=== PATIENT | female | born 1950 | race African-American/Black ===

== ENCOUNTER 2017-05-18 14:12 | Emergency (ER) | payer MEDICARE, MEDICAID ==
[~2017-05-18] VITALS: Ht 167.6 cm; Wt 91.0 kg
[~2017-05-18 14:12] MED LIST: AMLODAPINE; ASA; INSULIN; LISINOPRIL; METOPROLOL; ZETIA
[2017-05-18 14:18] VITALS: BP 104/42
[2017-05-18] MEDS ORDERED: ACETAMINOPHEN 325MG TABLET PO ONE (16:30)
== END 2017-05-18 18:18 | disposition home or self-care (01) ==
LOC: ER 14:38
DX: L03.031 Cellulitis of right toe (principal); I10 Essential (primary) hypertension; E11.9 Type 2 diabetes mellitus without complications; Z79.4 Long term (current) use of insulin
CPT/HCPCS: 10060; 99283

== ENCOUNTER 2018-01-13 13:27 | Emergency (ER) | payer MEDICARE, MEDICAID ==
[~2018-01-13] VITALS: Ht 165.1 cm; Wt 100.0 kg
[2018-01-13] MEDS ORDERED: ONDANSETRON HCL 4MG/2ML INJ IV STA (14:58)
[2018-01-13] MEDS ORDERED: SODIUM CHLORIDE 0.9% 1,000 ML IV ONE ×2 (14:58→17:45)
[2018-01-13] MEDS ORDERED: MORPHINE SULFATE 4 MG/ML CPJ (NOT FOR IM USE) IV STA (14:58)
[2018-01-13 15:35] LABS: BASOPHILS % 0.8 % (0.0-2.0); EOSINOPHILS % 4.5 % (0.0-5.0); HEMATOCRIT. 35.2 % (36.0-48.0); HEMOGLOBIN. 11.9 g/dL (12.0-16.0); LYMPHOCYTES % 27.2 % (20.0-50.0); MEAN CORPUSCULAR HEMOGLOBIN 29.1 pg (28.0-32.0); MEAN CORPUSCULAR VOLUME 85.9 fL (81.0-99.0); MEAN PLATELET VOLUME 6.5 fl (7.4-10.4); MONOCYTES % 5.7 % (2.0-8.0); NEUTROPHILS % 61.8 % (40.0-76.0); PLATELET 310 x1000/uL (130-400); RED CELL DISTRIBUTION WIDTH 14.2 % (11.6-14.6)
[2018-01-13 15:40] LABS: CHLORIDE 99 mEq/L (98-107)
[2018-01-13 15:56] LABS: CLARITY URINE CLOUDY (CLEAR); COLOR URINE YELLOW (YELLOW); KETONES URINE NEGATIVE (NEGATIVE); LEUKOCYTE ESTERASE URINE NEGATIVE (NEGATIVE); NITRITE URINE NEGATIVE (NEGATIVE); OCCULT BLOOD URINE NEGATIVE (NEGATIVE); PROTEIN URINE 2+ (NEGATIVE); SPECIFIC GRAVITY URINE 1.014 (1.005-1.030); UROBILINOGEN URINE 0.2 E.U./dL (0.2-1.0)
[2018-01-13] MEDS ORDERED: MORPHINE SULFATE 4 MG/ML CPJ (NOT FOR IM USE) IV ONE (17:45)
[2018-01-13] MEDS ORDERED: ONDANSETRON HCL 4MG/2ML INJ IV ONE (17:45)
[2018-01-13] MEDS ORDERED: CEFTRIAXONE SODIUM 1 G/VIAL IV ONE (17:45)
[2018-01-13 20:11] VITALS: BP 157/58
== END 2018-01-13 20:35 | disposition home or self-care (01) ==
LOC: ER 15:16
DX: N12 Tubulo-interstitial nephritis, not specified as acute or chronic (principal); E11.65 Type 2 diabetes mellitus with hyperglycemia; I10 Essential (primary) hypertension; Z79.4 Long term (current) use of insulin; Z87.442 Personal history of urinary calculi
CPT/HCPCS: 36415; 74176; 80053; 81003; 82962; 83690; 85025; 87086; 96374; 96375; 96376; 99285; J0696; J2270; J2405; J7030

== ENCOUNTER 2021-06-06 02:57 | Inpatient (IN) | payer MEDICARE, MEDICAID ==
[~2021-06-06] VITALS: Ht 167.6 cm; Wt 91.3 kg
[2021-06-06] MEDS ORDERED: SODIUM CHLORIDE 0.9% 1,000 ML IV ONE (03:15)
[2021-06-06 03:44] LABS: CHLORIDE 105 mEq/L (98-107)
[2021-06-06 03:51] LABS: HEMATOCRIT. 26.4 % (36.0-48.0); HEMOGLOBIN. 8.6 g/dL (12.0-16.0); MEAN CORPUSCULAR HEMOGLOBIN 27.8 pg (28.0-32.0); MEAN CORPUSCULAR VOLUME 85.2 fL (81.0-99.0); MEAN PLATELET VOLUME 6.9 fl (7.4-10.4); PLATELET 334 x1000/uL (130-400); RED BLOOD CELL COUNT 3.11 mill/uL (4.2-5.4); RED CELL DISTRIBUTION WIDTH 17.3 % (11.6-14.6)
[2021-06-06 04:25] LABS: PLATELET ESTIMATE NORMAL
[2021-06-06] MEDS ORDERED: PIPERACILLIN/TAZ 3.375G PREMIX 50 ML IV NR (04:45)
[2021-06-06] MEDS ORDERED: VANCOMYCIN 1G PREMIX 200 ML IV ONE (04:45)
[2021-06-06] MEDS ORDERED: VANCOMYCIN 1GM PMX (XELLIA) 200 ML IV NR (04:45)
[2021-06-06] MEDS ORDERED: DOCUSATE SODIUM 100MG CAPSULE PO PRN ×3 (06:15→13:00)
[2021-06-06] MEDS ORDERED: IPRATROPIUM/ALBUTEROL 0.5-3(2.5)MG/3ML NEB HHN PRN ×4 (06:15→13:00)
[2021-06-06] MEDS ORDERED: CLONIDINE 0.1MG TABLET PO PRN ×3 (06:15→13:00)
[2021-06-06] MEDS ORDERED: MAGNESIUM/ALUMINUM HYDROXIDE/SIMETHICONE 30ML UDC PO PRN ×4 (06:15→13:00)
[2021-06-06] MEDS ORDERED: ACETAMINOPHEN 325MG TABLET PO PRN ×4 (06:15→13:00)
[2021-06-06] MEDS ORDERED: NA PHOS,M-B/NA PHOS,DI-BA ENEMA 118ML PR PRN ×2 (06:15→13:00)
[2021-06-06] MEDS ORDERED: ONDANSETRON HCL 4MG/2ML INJ IV PRN ×4 (06:15→13:00)
[2021-06-06 07:27] LABS: VITAMIN B12 SERUM 830 pg/mL (211-911)
[2021-06-06] MEDS ORDERED: ENOXAPARIN 40MG/0.4ML SYR SUBCUT SCH (09:00)
[2021-06-06] MEDS ORDERED: METOPROLOL SUCCINATE 50MG ER TABLET PO SCH ×2 (09:00→14:00)
[2021-06-06] MEDS ORDERED: ASPIRIN 81MG TABLET PO SCH (09:00)
[2021-06-06 10:00] VITALS: BP 170/73
[2021-06-06] MEDS ORDERED: HYDROCODONE/ACETAMINOPHEN 5/325MG TABLET PO PRN (11:30)
[2021-06-06] MEDS ORDERED: DEXTROSE 50% WATER 50ML SYRINGE IV PRN ×4 (11:30→13:00)
[2021-06-06] MEDS ORDERED: LEVOFLOXACIN 500MG PREMIX 100 ML IV SCH (11:30)
[2021-06-06 12:00] VITALS: BP 188/81
[2021-06-06] MEDS ORDERED: OMEPRAZOLE 20MG CAPSULE EXTENDED RELEASE PO SCH (12:00)
[2021-06-06] MEDS ORDERED: ENOXAPARIN 30MG/0.3ML SYR SUBCUT SCH ×2 (12:00→13:00)
[2021-06-06] MEDS ORDERED: IPRATROPIUM/ALBUTEROL 0.5-3(2.5)MG/3ML NEB HHN SCH (12:00)
[2021-06-06] MEDS ORDERED: BLOOD SUGAR DIAGNOSTIC STRIP TEST SCH (12:10)
[2021-06-06 12:13] LABS: TOTAL IRON BINDING CAPACITY 215 ug/dL (250-450)
[2021-06-06] MEDS ORDERED: HYDR-4009 MT (12:22)
[2021-06-06] MEDS ORDERED: HYDR100T26 MT (12:22)
[2021-06-06] MEDS ORDERED: LEVVL SQ (12:22)
[2021-06-06] MEDS ORDERED: AMLO5TAB88 MT (12:22)
[2021-06-06] MEDS ORDERED: ASPI-1497 MT (12:22)
[2021-06-06] MEDS ORDERED: INSLIS SUBCUT (12:22)
[2021-06-06] MEDS ORDERED: SITA25TA3 MT (12:22)
[2021-06-06] MEDS: INSULIN LISPRO 100 UNITS/ML SUBCUT SCH ×3 (13:01→20:13)
[2021-06-06] MEDS: CLONIDINE 0.1MG TABLET PO PRN (13:04)
[2021-06-06] MEDS: ASPIRIN 81MG TABLET PO SCH (13:04)
[2021-06-06] MEDS: HYDROCODONE/ACETAMINOPHEN 5/325MG TABLET PO PRN ×2 (13:05→23:47)
[2021-06-06 13:28] LABS: HEMATOCRIT. 24.7 % (36.0-48.0); HEMOGLOBIN. 8.2 g/dL (12.0-16.0); MEAN CORPUSCULAR HEMOGLOBIN 27.9 pg (28.0-32.0); MEAN CORPUSCULAR VOLUME 84.6 fL (81.0-99.0); MEAN PLATELET VOLUME 6.8 fl (7.4-10.4); PLATELET 325 x1000/uL (130-400); RED BLOOD CELL COUNT 2.92 mill/uL (4.2-5.4); RED CELL DISTRIBUTION WIDTH 17.5 % (11.6-14.6)
[2021-06-06] MEDS ORDERED: PIPERACILLIN/TAZ 3.375G PREMIX 50 ML IV SCH (14:00)
[2021-06-06] MEDS ORDERED: PIPERACILLIN/TAZOBACTAM 3.375 G in DEXTROSE 5% WATER 50 ML IV SCH (14:00)
[2021-06-06] MEDS: IPRATROPIUM/ALBUTEROL 0.5-3(2.5)MG/3ML NEB HHN SCH ×2 (14:38→20:28)
[2021-06-06 15:54] LABS: PLATELET ESTIMATE NORMAL
[2021-06-06 16:00] VITALS: BP 158/82
[2021-06-06] MEDS ORDERED: LEVOFLOXACIN 500MG PREMIX 100 ML IV NR (17:00)
[2021-06-06] MEDS: LOSARTAN POTASSIUM 25 MG TABLET PO SCH ×2 (17:57→20:11)
[2021-06-06] MEDS: BLOOD SUGAR DIAGNOSTIC STRIP TEST SCH ×2 (17:59→20:10)
[2021-06-06] MEDS ORDERED: LEVOFLOXACIN 500MG TABLET PO NR (18:00)
[2021-06-06 18:53] LABS: CLARITY URINE CLEAR (CLEAR); COLOR URINE YELLOW (YELLOW); KETONES URINE NEGATIVE (NEGATIVE); LEUKOCYTE ESTERASE URINE NEGATIVE (NEGATIVE); NITRITE URINE NEGATIVE (NEGATIVE); OCCULT BLOOD URINE NEGATIVE (NEGATIVE); PROTEIN URINE 3+ (NEGATIVE); SPECIFIC GRAVITY URINE 1.015 (1.005-1.030); UROBILINOGEN URINE 0.2 E.U./dL (0.2-1.0)
[2021-06-06 20:00] VITALS: BP 181/73
[2021-06-06] MEDS: CARVEDILOL 12.5MG TABLET PO SCH (20:11)
[2021-06-06] MEDS: ATORVASTATIN CALCIUM 40MG TABLET PO SCH (20:11)
[2021-06-06 20:50] VITALS: BP 187/79
[2021-06-06 20:55] LABS: BG BASE EXCESS -3.4 mmol/L (-2.0-2.0); BG CARBOXYHEMOGLOBIN 1.2 % (0.5-1.5); BG DEOXYHEMOGLOBIN 14.5 % (0.0-5.0); BG HCO3 ACT 22.5 mmol/L (22.0-26.0); BG METHEMOGLOBIN 0.3 % (0.0-1.5); BG OXYGEN SATURATION 85.3 % (92.0-98.5); BG PCO2 43.6 mmHg (35.0-45.0); BG PO2 54.6 mmHg (75.0-100.0)
[2021-06-06] MEDS ORDERED: ATORVASTATIN CALCIUM 40MG TABLET PO SCH (21:00)
[2021-06-06] MEDS ORDERED: NALOXONE HCL 0.4MG/ML VIAL IV PRN (21:45)
[2021-06-06 22:00] VITALS: BP 131/55
[2021-06-07] VITALS (20 sets, daily range): BP systolic 105–159; BP diastolic 43–74
[2021-06-07] MEDS: VANCOMYCIN 1.25GM PMX (XELLIA) 250 ML IV SCH (00:01)
[2021-06-07] MEDS ORDERED: FUROSEMIDE 40MG TABLET PO NR (01:15)
[2021-06-07] MEDS: IPRATROPIUM/ALBUTEROL 0.5-3(2.5)MG/3ML NEB HHN SCH ×3 (02:06→14:14)
[2021-06-07] MEDS: HYDROCODONE/ACETAMINOPHEN 5/325MG TABLET PO PRN ×4 (04:13→23:32)
[2021-06-07] MEDS: OMEPRAZOLE 20MG CAPSULE EXTENDED RELEASE PO SCH (06:34)
[2021-06-07] MEDS: BLOOD SUGAR DIAGNOSTIC STRIP TEST SCH ×4 (06:39→21:50)
[2021-06-07 06:47] LABS: BASOPHILS % 0.7 % (0.0-2.0); EOSINOPHILS % 0.7 % (0.0-5.0); LYMPHOCYTES % 10.3 % (20.0-50.0); MEAN CORPUSCULAR HEMOGLOBIN 28.2 pg (28.0-32.0); MEAN CORPUSCULAR VOLUME 85.2 fL (81.0-99.0); MEAN PLATELET VOLUME 6.8 fl (7.4-10.4); MONOCYTES % 5.4 % (2.0-8.0); NEUTROPHILS % 82.9 % (40.0-76.0); PLATELET 271 x1000/uL (130-400); RED BLOOD CELL COUNT 2.44 mill/uL (4.2-5.4)
[2021-06-07 06:58] LABS: HEMOGLOBIN. 6.9 g/dL (12.0-16.0)
[2021-06-07 06:59] LABS: HEMATOCRIT. 20.8 % (36.0-48.0)
[2021-06-07 07:45] LABS: T4 FREE 1.03 ng/dL (0.76-1.46)
[2021-06-07] MEDS: LOSARTAN POTASSIUM 25 MG TABLET PO SCH (08:42)
[2021-06-07] MEDS: DOCUSATE SODIUM 100MG CAPSULE PO PRN ×2 (08:42→17:41)
[2021-06-07] MEDS: CARVEDILOL 12.5MG TABLET PO SCH ×2 (08:42→21:48)
[2021-06-07] MEDS: ASPIRIN 81MG TABLET PO SCH (08:42)
[2021-06-07] MEDS: INSULIN LISPRO 100 UNITS/ML SUBCUT SCH ×4 (08:43→21:49)
[2021-06-07] MEDS: FUROSEMIDE 40MG/4ML VIAL IVP SCH (10:50)
[2021-06-07] MEDS ORDERED: SODIUM POLYSTYRENE SULFONATE 15 G/60 ML BOT PO SCH (11:00)
[2021-06-07 12:35] LABS: FOLIC ACID (FOLATE) SERUM 8.4 ng/mL (>5.38)
[2021-06-07] MEDS ORDERED: LEVOFLOXACIN 250MG PREMIX 50 ML IV SCH (17:00)
[2021-06-07] MEDS: LEVOFLOXACIN 250MG TABLET PO SCH (17:41)
[2021-06-07 21:21] LABS: HEMOGLOBIN 7.8 g/dL (12.0-16.0)
[2021-06-07] MEDS: ATORVASTATIN CALCIUM 40MG TABLET PO SCH (21:45)
[2021-06-07] MEDS ORDERED: INSULIN GLARGINE UD 100 UNITS/ML SYR SUBCUT SCH (22:00)
[2021-06-08] VITALS (17 sets, daily range): BP systolic 126–169; BP diastolic 54–85
[2021-06-08] MEDS: IPRATROPIUM/ALBUTEROL 0.5-3(2.5)MG/3ML NEB HHN SCH ×4 (01:58→21:26)
[2021-06-08] MEDS: HYDROCODONE/ACETAMINOPHEN 5/325MG TABLET PO PRN ×3 (04:43→17:56)
[2021-06-08] MEDS: OMEPRAZOLE 20MG CAPSULE EXTENDED RELEASE PO SCH (06:32)
[2021-06-08] MEDS: BLOOD SUGAR DIAGNOSTIC STRIP TEST SCH ×4 (06:32→20:40)
[2021-06-08] MEDS: INSULIN LISPRO 100 UNITS/ML SUBCUT SCH ×4 (07:20→21:18)
[2021-06-08 07:45] LABS: EOSINOPHILS % 2.8 % (0.0-5.0); HEMOGLOBIN. 7.3 g/dL (12.0-16.0); LYMPHOCYTES % 19.3 % (20.0-50.0); MEAN CORPUSCULAR HEMOGLOBIN 27.8 pg (28.0-32.0); MEAN CORPUSCULAR VOLUME 83.7 fL (81.0-99.0); MONOCYTES % 6.2 % (2.0-8.0); NEUTROPHILS % 70.7 % (40.0-76.0); RED BLOOD CELL COUNT 2.63 mill/uL (4.2-5.4); RED CELL DISTRIBUTION WIDTH 17.4 % (11.6-14.6)
[2021-06-08 08:10] LABS: CHLORIDE 105 mEq/L (98-107)
[2021-06-08 08:20] LABS: PHOSPHORUS 4.7 mg/dL (2.5-4.9)
[2021-06-08] MEDS: ASPIRIN 81MG TABLET PO SCH (08:23)
[2021-06-08] MEDS: CARVEDILOL 12.5MG TABLET PO SCH ×2 (08:23→21:31)
[2021-06-08] MEDS: FUROSEMIDE 40MG/4ML VIAL IVP SCH ×2 (08:23→21:20)
[2021-06-08 08:33] LABS: PLATELET 232 x1000/uL (130-400)
[2021-06-08] MEDS: PANTOPRAZOLE SODIUM 40 MG/VIAL IV SCH ×2 (10:00→17:55)
[2021-06-08 10:35] LABS: BG BASE EXCESS 0.3 mmol/L (-2.0-2.0); BG CARBOXYHEMOGLOBIN 0.2 % (0.5-1.5); BG DEOXYHEMOGLOBIN 7.4 % (0.0-5.0); BG FRACTION INSPIRED OXYGEN 38; BG HCO3 ACT 24.4 mmol/L (22.0-26.0); BG METHEMOGLOBIN 0.1 % (0.0-1.5); BG OXYGEN SATURATION 92.6 % (92.0-98.5); BG OXYHEMOGLOBIN 92.3 % (94.0-97.0); BG PCO2 37.4 mmHg (35.0-45.0); BG PH 7.433 (7.350-7.450); BG PO2 65.6 mmHg (75.0-100.0); BG SAMPLE SITE LEFT RADIAL; BG TOTAL HEMOGLOBIN 8.4 g/dL (12.0-18.0); BG VENT MODE NASAL CANNULA
[2021-06-08] MEDS: VANCOMYCIN 1.25GM PMX (XELLIA) 250 ML IV SCH (13:07)
[2021-06-08] MEDS: CLONIDINE 0.1MG TABLET PO PRN (13:07)
[2021-06-08 16:33] LABS: HEMATOCRIT 25.1 % (36.0-48.0); HEMOGLOBIN 8.3 g/dL (12.0-16.0)
[2021-06-08] MEDS: LEVOFLOXACIN 250MG TABLET PO SCH (17:55)
[2021-06-08] MEDS ORDERED: SENNOSIDES/DOCUSATE SOD 8.6/50MG TABLET PO PRN (18:00)
[2021-06-08] MEDS: DOCUSATE SODIUM 100MG CAPSULE PO PRN (18:05)
[2021-06-08] MEDS ORDERED: POLYETHYLENE GLYCOL 3350 (17GM) 1 DOSE PACK PO NR (18:30)
[2021-06-08] MEDS ORDERED: LACTULOSE 20G/30ML UDC PO NR (18:30)
[2021-06-08] MEDS: HYDROCODONE/ACETAMINOPHEN 10/325MG TABLET PO PRN (19:13)
[2021-06-08] MEDS: ATORVASTATIN CALCIUM 40MG TABLET PO SCH (21:31)
[2021-06-08] MEDS: INSULIN GLARGINE UD 100 UNITS/ML SYR SUBCUT SCH (22:10)
[2021-06-09] VITALS (13 sets, daily range): BP systolic 122–177; BP diastolic 50–81
[2021-06-09] MEDS: HYDROCODONE/ACETAMINOPHEN 10/325MG TABLET PO PRN ×3 (00:28→16:25)
[2021-06-09] MEDS: IPRATROPIUM/ALBUTEROL 0.5-3(2.5)MG/3ML NEB HHN SCH ×4 (01:40→21:10)
[2021-06-09] MEDS ORDERED: LIDOCAINE HCL/PF 1% 2ML VIAL ONE (05:00)
[2021-06-09] MEDS: BLOOD SUGAR DIAGNOSTIC STRIP TEST SCH ×4 (06:40→20:51)
[2021-06-09] MEDS: OMEPRAZOLE 20MG CAPSULE EXTENDED RELEASE PO SCH (06:58)
[2021-06-09] MEDS: INSULIN LISPRO 100 UNITS/ML SUBCUT SCH ×4 (07:20→21:14)
[2021-06-09] MEDS: DOCUSATE SODIUM 100MG CAPSULE PO PRN (07:54)
[2021-06-09] MEDS: FUROSEMIDE 40MG/4ML VIAL IVP SCH ×2 (07:54→21:11)
[2021-06-09] MEDS: PANTOPRAZOLE SODIUM 40 MG/VIAL IV SCH ×2 (07:54→16:25)
[2021-06-09] MEDS: ASPIRIN 81MG TABLET PO SCH (07:54)
[2021-06-09] MEDS: DOCUSATE SODIUM SUGAR FREE 100MG/10ML UDC NG SCH (07:54)
[2021-06-09] MEDS: CARVEDILOL 12.5MG TABLET PO SCH ×2 (07:55→21:12)
[2021-06-09 08:31] LABS: EOSINOPHILS % 3.3 % (0.0-5.0); HEMATOCRIT. 25.7 % (36.0-48.0); HEMOGLOBIN. 8.9 g/dL (12.0-16.0); LYMPHOCYTES % 20.2 % (20.0-50.0); MEAN CORPUSCULAR HEMOGLOBIN 28.8 pg (28.0-32.0); MEAN CORPUSCULAR VOLUME 82.5 fL (81.0-99.0); MONOCYTES % 6.1 % (2.0-8.0); NEUTROPHILS % 69.4 % (40.0-76.0); PLATELET 269 x1000/uL (130-400); RED BLOOD CELL COUNT 3.11 mill/uL (4.2-5.4); RED CELL DISTRIBUTION WIDTH 17.1 % (11.6-14.6)
[2021-06-09 09:06] LABS: IMMUNOGLOBULIN A 338 mg/dL (87-352); IMMUNOGLOBULIN G 966 mg/dL (586-1602); IMMUNOGLOBULIN M 89 mg/dL (26-217)
[2021-06-09 09:47] LABS: PHOSPHORUS 4.6 mg/dL (2.5-4.9)
[2021-06-09] MEDS ORDERED: BISACODYL 10MG SUPP PR NR (10:00)
[2021-06-09] MEDS ORDERED: POTASSIUM CHLORIDE 20MEQ/PACKET PO NR (12:00)
[2021-06-09] MEDS ORDERED: SORBITOL 70% SOLN 30ML PO NR (12:00)
[2021-06-09] MEDS: LIDOCAINE 5% PATCH TOP SCH (13:02)
[2021-06-09] MEDS: LEVOFLOXACIN 250MG TABLET PO SCH (18:16)
[2021-06-09] MEDS: ATORVASTATIN CALCIUM 40MG TABLET PO SCH (21:11)
[2021-06-09] MEDS: INSULIN GLARGINE UD 100 UNITS/ML SYR SUBCUT SCH (21:13)
[2021-06-09] MEDS: HYDRALAZINE HCL 25MG TABLET PO SCH (22:30)
[2021-06-10] VITALS (20 sets, daily range): BP systolic 97–176; BP diastolic 50–76
[2021-06-10] MEDS: HYDROCODONE/ACETAMINOPHEN 10/325MG TABLET PO PRN ×3 (00:20→17:37)
[2021-06-10] MEDS: IPRATROPIUM/ALBUTEROL 0.5-3(2.5)MG/3ML NEB HHN SCH ×4 (01:45→20:16)
[2021-06-10] MEDS: HYDRALAZINE HCL 25MG TABLET PO SCH (05:02)
[2021-06-10] MEDS: BLOOD SUGAR DIAGNOSTIC STRIP TEST SCH ×4 (06:28→20:16)
[2021-06-10] MEDS: CLONIDINE 0.1MG TABLET PO PRN (06:33)
[2021-06-10 06:55] LABS: BASOPHILS % 0.9 % (0.0-2.0); EOSINOPHILS % 3.1 % (0.0-5.0); HEMATOCRIT. 27.3 % (36.0-48.0); HEMOGLOBIN. 9.5 g/dL (12.0-16.0); LYMPHOCYTES % 17.5 % (20.0-50.0); MEAN CORPUSCULAR HEMOGLOBIN 28.5 pg (28.0-32.0); MEAN CORPUSCULAR VOLUME 81.9 fL (81.0-99.0); MEAN PLATELET VOLUME 6.9 fl (7.4-10.4); MONOCYTES % 7.4 % (2.0-8.0); NEUTROPHILS % 71.1 % (40.0-76.0); PLATELET 284 x1000/uL (130-400); RED BLOOD CELL COUNT 3.33 mill/uL (4.2-5.4); RED CELL DISTRIBUTION WIDTH 16.8 % (11.6-14.6)
[2021-06-10 07:12] LABS: PHOSPHORUS 4.3 mg/dL (2.5-4.9)
[2021-06-10] MEDS: INSULIN LISPRO 100 UNITS/ML SUBCUT SCH ×4 (07:20→20:26)
[2021-06-10] MEDS: FUROSEMIDE 40MG/4ML VIAL IVP SCH ×2 (08:10→20:13)
[2021-06-10] MEDS: PANTOPRAZOLE SODIUM 40 MG/VIAL IV SCH ×2 (08:10→17:35)
[2021-06-10] MEDS: ASPIRIN 81MG TABLET PO SCH (08:10)
[2021-06-10] MEDS: DOCUSATE SODIUM 100MG CAPSULE PO PRN (08:10)
[2021-06-10] MEDS: CARVEDILOL 12.5MG TABLET PO SCH ×2 (08:11→20:14)
[2021-06-10] MEDS: DOCUSATE SODIUM SUGAR FREE 100MG/10ML UDC NG SCH (08:11)
[2021-06-10] MEDS: LIDOCAINE 5% PATCH TOP SCH (08:14)
[2021-06-10] MEDS ORDERED: FURO-152 MT (11:10)
[2021-06-10] MEDS ORDERED: LIP40 PO (11:10)
[2021-06-10] MEDS ORDERED: SENN1TAB35 PO (11:10)
[2021-06-10] MEDS: HYDRALAZINE HCL 50MG TABLET PO SCH ×2 (14:20→22:00)
[2021-06-10] MEDS: LEVOFLOXACIN 250MG TABLET PO SCH (17:36)
[2021-06-10] MEDS: ATORVASTATIN CALCIUM 40MG TABLET PO SCH (20:13)
[2021-06-10] MEDS: INSULIN GLARGINE UD 100 UNITS/ML SYR SUBCUT SCH (22:06)
[2021-06-11] VITALS (13 sets, daily range): BP systolic 123–168; BP diastolic 52–72
[2021-06-11] MEDS: HYDROCODONE/ACETAMINOPHEN 10/325MG TABLET PO PRN ×3 (01:10→17:43)
[2021-06-11] MEDS: IPRATROPIUM/ALBUTEROL 0.5-3(2.5)MG/3ML NEB HHN SCH ×4 (01:52→20:48)
[2021-06-11] MEDS: BLOOD SUGAR DIAGNOSTIC STRIP TEST SCH ×4 (05:45→21:21)
[2021-06-11] MEDS: HYDRALAZINE HCL 50MG TABLET PO SCH ×3 (05:45→21:18)
[2021-06-11 06:59] LABS: BASOPHILS % 0.8 % (0.0-2.0); EOSINOPHILS % 2.9 % (0.0-5.0); HEMATOCRIT. 28.2 % (36.0-48.0); HEMOGLOBIN. 9.6 g/dL (12.0-16.0); LYMPHOCYTES % 16.6 % (20.0-50.0); MEAN CORPUSCULAR HEMOGLOBIN 28.3 pg (28.0-32.0); MEAN PLATELET VOLUME 6.7 fl (7.4-10.4); MONOCYTES % 5.5 % (2.0-8.0); NEUTROPHILS % 74.2 % (40.0-76.0); PLATELET 294 x1000/uL (130-400); RED BLOOD CELL COUNT 3.39 mill/uL (4.2-5.4); RED CELL DISTRIBUTION WIDTH 16.8 % (11.6-14.6)
[2021-06-11 08:08] LABS: PHOSPHORUS 4.4 mg/dL (2.5-4.9)
[2021-06-11] MEDS: INSULIN LISPRO 100 UNITS/ML SUBCUT SCH ×4 (08:50→21:19)
[2021-06-11] MEDS: PANTOPRAZOLE SODIUM 40 MG/VIAL IV SCH ×2 (08:51→17:42)
[2021-06-11] MEDS: ASPIRIN 81MG TABLET PO SCH (08:51)
[2021-06-11] MEDS: CARVEDILOL 12.5MG TABLET PO SCH ×2 (08:51→21:18)
[2021-06-11] MEDS: DOCUSATE SODIUM 100MG CAPSULE PO PRN (08:51)
[2021-06-11] MEDS: FUROSEMIDE 40MG/4ML VIAL IVP SCH (08:51)
[2021-06-11] MEDS: LIDOCAINE 5% PATCH TOP SCH (08:54)
[2021-06-11] MEDS: DOCUSATE SODIUM SUGAR FREE 100MG/10ML UDC NG SCH (08:55)
[2021-06-11] MEDS: SODIUM CHLORIDE 0.9% 1,000 ML IV SCH (15:14)
[2021-06-11 15:52] LABS: INR 1.1; PROTHROMBIN TIME 11.3 sec (9.6-11.0)
[2021-06-11] MEDS: ATORVASTATIN CALCIUM 40MG TABLET PO SCH (21:18)
[2021-06-11] MEDS: INSULIN GLARGINE UD 100 UNITS/ML SYR SUBCUT SCH (21:21)
[2021-06-11] MEDS: HYDROCODONE/ACETAMINOPHEN 5/325MG TABLET PO PRN (22:09)
[2021-06-12] VITALS (64 sets, daily range): BP systolic 111–184; BP diastolic 44–87
[2021-06-12] MEDS: IPRATROPIUM/ALBUTEROL 0.5-3(2.5)MG/3ML NEB HHN SCH ×4 (01:09→21:06)
[2021-06-12] MEDS: BLOOD SUGAR DIAGNOSTIC STRIP TEST SCH ×4 (06:00→21:00)
[2021-06-12] MEDS: HYDRALAZINE HCL 50MG TABLET PO SCH ×3 (06:28→21:45)
[2021-06-12] MEDS ORDERED: LIDOCAINE HCL 1% 20ML VIAL (Pyxis) INJ ONE (06:38)
[2021-06-12] MEDS ORDERED: BACITRACIN 15GM TUBE TOP ONE (06:38)
[2021-06-12] MEDS ORDERED: THROMBIN (BOVINE) 5000 UNITS/VIAL TOP ONE ×2 (06:38→06:39)
[2021-06-12] MEDS ORDERED: POLYMYXIN B SULFATE 500000 UNITS/VIAL ONE (06:39)
[2021-06-12] MEDS ORDERED: HEPARIN SODIUM 1,000 UNIT/1ML VIAL IV ONE (06:39)
[2021-06-12] MEDS ORDERED: BUPIVACAINE HCL/PF 0.5% (5MG/ML) 10ML ONE (06:39)
[2021-06-12 07:16] LABS: EOSINOPHILS % 3.8 % (0.0-5.0); HEMATOCRIT. 28.3 % (36.0-48.0); HEMOGLOBIN. 9.3 g/dL (12.0-16.0); MEAN CORPUSCULAR HEMOGLOBIN 27.8 pg (28.0-32.0); MEAN CORPUSCULAR VOLUME 84.2 fL (81.0-99.0); MEAN PLATELET VOLUME 6.9 fl (7.4-10.4); NEUTROPHILS % 71.2 % (40.0-76.0); PLATELET 300 x1000/uL (130-400); RED BLOOD CELL COUNT 3.36 mill/uL (4.2-5.4); RED CELL DISTRIBUTION WIDTH 16.9 % (11.6-14.6)
[2021-06-12] MEDS: INSULIN LISPRO 100 UNITS/ML SUBCUT SCH ×4 (07:20→22:36)
[2021-06-12 07:22] LABS: PHOSPHORUS 3.6 mg/dL (2.5-4.9)
[2021-06-12] MEDS ORDERED: MIDAZOLAM HCL 2 MG/2 ML VIAL ONE (07:29)
[2021-06-12] MEDS ORDERED: ROCURONIUM BROMIDE 10MG/ML VIAL 5ML IV ONE (07:29)
[2021-06-12] MEDS ORDERED: NEOSTIGMINE METHYLSULFATE 1MG/ML 10 ML VIAL ONE (07:29)
[2021-06-12] MEDS ORDERED: GLYCOPYRROLATE 0.2 MG/ML 2ML VIAL ONE ×2 (07:29→08:42)
[2021-06-12] MEDS ORDERED: FENTANYL CITRATE/PF 50MCG/ML 2ML VIAL ONE (07:29)
[2021-06-12] MEDS ORDERED: PROPOFOL 200MG/20ML VIAL IV ONE (07:29)
[2021-06-12] MEDS ORDERED: ONDANSETRON HCL 4MG/2ML INJ ONE (07:43)
[2021-06-12] MEDS ORDERED: DEXAMETHASONE 4MG/ML 1ML VIAL ONE (07:43)
[2021-06-12] MEDS ORDERED: *PATIENT'S OWN MEDICATION STORAGE XX SCH (08:00)
[2021-06-12] MEDS: ASPIRIN 81MG TABLET PO SCH ×2 (08:51→09:00)
[2021-06-12] MEDS ORDERED: NICARDIPINE 40MG/200ML PREMIX 200 ML IV PRN (09:00)
[2021-06-12] MEDS: CARVEDILOL 12.5MG TABLET PO SCH ×2 (09:00→21:45)
[2021-06-12] MEDS: HYDROMORPHONE HCL/PF 2MG/ML CPJ IV PRN ×9 (09:00→18:21)
[2021-06-12] MEDS: DOCUSATE SODIUM SUGAR FREE 100MG/10ML UDC NG SCH (09:00)
[2021-06-12] MEDS: PANTOPRAZOLE SODIUM 40 MG/VIAL IV SCH ×2 (09:00→17:32)
[2021-06-12] MEDS: LIDOCAINE 5% PATCH TOP SCH ×2 (11:00→21:47)
[2021-06-12] MEDS: HYDROCODONE/ACETAMINOPHEN 5/325MG TABLET PO PRN (15:39)
[2021-06-12] MEDS: SODIUM CHLORIDE 0.9% 1,000 ML IV SCH (15:44)
[2021-06-12] MEDS ORDERED: NALOXONE HCL 0.4MG/ML VIAL IV PRN (18:00)
[2021-06-12] MEDS: TAMSULOSIN HCL 0.4MG SR CAPSULE PO SCH (18:36)
[2021-06-12] MEDS: MORPHINE SULFATE 2 MG/ML CPJ (NOT FOR IM USE) IV PRN (21:44)
[2021-06-12] MEDS: ATORVASTATIN CALCIUM 40MG TABLET PO SCH (21:45)
[2021-06-12] MEDS: INSULIN GLARGINE UD 100 UNITS/ML SYR SUBCUT SCH (22:36)
[2021-06-13] VITALS (54 sets, daily range): BP systolic 86–167; BP diastolic 37–92
[2021-06-13] MEDS: HYDROMORPHONE HCL/PF 2MG/ML CPJ IV PRN ×2 (02:07→08:04)
[2021-06-13] MEDS: MORPHINE SULFATE 2 MG/ML CPJ (NOT FOR IM USE) IV PRN ×3 (04:35→19:47)
[2021-06-13 06:16] LABS: PHOSPHORUS 4.5 mg/dL (2.5-4.9)
[2021-06-13 06:27] LABS: BASOPHILS % 0.5 % (0.0-2.0); EOSINOPHILS % 0.6 % (0.0-5.0); HEMOGLOBIN. 8.1 g/dL (12.0-16.0); LYMPHOCYTES % 16.9 % (20.0-50.0); MEAN CORPUSCULAR HEMOGLOBIN 28.4 pg (28.0-32.0); MEAN CORPUSCULAR VOLUME 84.1 fL (81.0-99.0); MEAN PLATELET VOLUME 6.7 fl (7.4-10.4); MONOCYTES % 9.1 % (2.0-8.0); NEUTROPHILS % 72.9 % (40.0-76.0); PLATELET 300 x1000/uL (130-400); RED BLOOD CELL COUNT 2.85 mill/uL (4.2-5.4); RED CELL DISTRIBUTION WIDTH 16.7 % (11.6-14.6)
[2021-06-13] MEDS: BLOOD SUGAR DIAGNOSTIC STRIP TEST SCH ×4 (06:37→21:00)
[2021-06-13] MEDS: HYDRALAZINE HCL 50MG TABLET PO SCH ×3 (06:41→21:27)
[2021-06-13] MEDS: INSULIN LISPRO 100 UNITS/ML SUBCUT SCH ×4 (06:42→21:35)
[2021-06-13] MEDS: IPRATROPIUM/ALBUTEROL 0.5-3(2.5)MG/3ML NEB HHN SCH ×3 (08:05→20:50)
[2021-06-13] MEDS: DOCUSATE SODIUM SUGAR FREE 100MG/10ML UDC NG SCH (09:00)
[2021-06-13] MEDS: LIDOCAINE 5% PATCH TOP SCH ×2 (09:00→09:58)
[2021-06-13] MEDS: CARVEDILOL 12.5MG TABLET PO SCH ×2 (09:00→21:27)
[2021-06-13] MEDS: PANTOPRAZOLE SODIUM 40 MG/VIAL IV SCH ×2 (09:26→17:01)
[2021-06-13] MEDS: TAMSULOSIN HCL 0.4MG SR CAPSULE PO SCH (09:27)
[2021-06-13] MEDS: DOCUSATE SODIUM 100MG CAPSULE PO PRN (09:27)
[2021-06-13] MEDS: HYDROCODONE/ACETAMINOPHEN 10/325MG TABLET PO PRN ×2 (09:58→18:07)
[2021-06-13] MEDS: FERROUS SULFATE 325MG TABLET PO SCH (12:38)
[2021-06-13] MEDS: SODIUM CHLORIDE 0.9% 1,000 ML IV SCH (14:11)
[2021-06-13] MEDS: DILTIAZEM HCL 30MG TABLET PO SCH ×2 (17:01→21:27)
[2021-06-13] MEDS ORDERED: DILTIAZEM HCL 30MG TABLET PO SCH (18:00)
[2021-06-13] MEDS: ATORVASTATIN CALCIUM 40MG TABLET PO SCH (21:27)
[2021-06-13] MEDS: INSULIN GLARGINE UD 100 UNITS/ML SYR SUBCUT SCH (21:34)
[2021-06-13] MEDS: HYDROCODONE/ACETAMINOPHEN 5/325MG TABLET PO PRN (22:09)
[2021-06-14] VITALS (46 sets, daily range): BP systolic 91–152; BP diastolic 38–73
[2021-06-14] MEDS: IPRATROPIUM/ALBUTEROL 0.5-3(2.5)MG/3ML NEB HHN SCH ×4 (02:00→20:25)
[2021-06-14] MEDS: HYDRALAZINE HCL 50MG TABLET PO SCH ×3 (05:38→21:47)
[2021-06-14] MEDS: DILTIAZEM HCL 30MG TABLET PO SCH ×3 (05:39→21:47)
[2021-06-14 06:49] LABS: PHOSPHORUS 3.8 mg/dL (2.5-4.9)
[2021-06-14 07:38] LABS: BASOPHILS % 0.9 % (0.0-2.0); EOSINOPHILS % 3.6 % (0.0-5.0); LYMPHOCYTES % 19.1 % (20.0-50.0); MEAN CORPUSCULAR HEMOGLOBIN 27.6 pg (28.0-32.0); MEAN PLATELET VOLUME 6.8 fl (7.4-10.4); MONOCYTES % 6.7 % (2.0-8.0); NEUTROPHILS % 69.7 % (40.0-76.0); PLATELET 267 x1000/uL (130-400); RED BLOOD CELL COUNT 2.43 mill/uL (4.2-5.4); RED CELL DISTRIBUTION WIDTH 16.9 % (11.6-14.6)
[2021-06-14 07:40] LABS: HEMATOCRIT. 20.7 % (36.0-48.0); HEMOGLOBIN. 6.7 g/dL (12.0-16.0)
[2021-06-14] MEDS: PANTOPRAZOLE SODIUM 40 MG/VIAL IV SCH ×2 (08:13→17:44)
[2021-06-14] MEDS: ASPIRIN 81MG TABLET PO SCH (08:13)
[2021-06-14] MEDS: TAMSULOSIN HCL 0.4MG SR CAPSULE PO SCH (08:13)
[2021-06-14] MEDS: CARVEDILOL 12.5MG TABLET PO SCH ×2 (08:13→21:47)
[2021-06-14] MEDS: DOCUSATE SODIUM 250MG CAPSULE PO SCH (08:13)
[2021-06-14] MEDS: FERROUS SULFATE 325MG TABLET PO SCH (08:14)
[2021-06-14] MEDS: HYDROCODONE/ACETAMINOPHEN 10/325MG TABLET PO PRN (08:14)
[2021-06-14] MEDS: BLOOD SUGAR DIAGNOSTIC STRIP TEST SCH ×4 (08:14→21:47)
[2021-06-14] MEDS: INSULIN LISPRO 100 UNITS/ML SUBCUT SCH ×4 (08:19→21:48)
[2021-06-14] MEDS: LIDOCAINE 5% PATCH TOP SCH ×2 (09:00→12:30)
[2021-06-14 10:40] LABS: BASOPHILS % 0.7 % (0.0-2.0); EOSINOPHILS % 3.9 % (0.0-5.0); LYMPHOCYTES % 19.5 % (20.0-50.0); MEAN CORPUSCULAR HEMOGLOBIN 28.1 pg (28.0-32.0); MEAN CORPUSCULAR VOLUME 85.2 fL (81.0-99.0); MEAN PLATELET VOLUME 6.8 fl (7.4-10.4); MONOCYTES % 6.4 % (2.0-8.0); NEUTROPHILS % 69.5 % (40.0-76.0); PLATELET 246 x1000/uL (130-400); RED CELL DISTRIBUTION WIDTH 16.8 % (11.6-14.6)
[2021-06-14 10:42] LABS: HEMATOCRIT. 19.6 % (36.0-48.0); HEMOGLOBIN. 6.5 g/dL (12.0-16.0)
[2021-06-14] MEDS: HYDROMORPHONE HCL/PF 2MG/ML CPJ IV PRN ×2 (15:06→19:43)
[2021-06-14 16:49] LABS: HEMATOCRIT 21.8 % (36.0-48.0); HEMOGLOBIN 7.6 g/dL (12.0-16.0)
[2021-06-14] MEDS: DOCUSATE SODIUM 100MG CAPSULE PO PRN (17:45)
[2021-06-14] MEDS: ATORVASTATIN CALCIUM 40MG TABLET PO SCH (21:47)
[2021-06-14] MEDS: INSULIN GLARGINE UD 100 UNITS/ML SYR SUBCUT SCH (21:49)
[2021-06-15] VITALS (12 sets, daily range): BP systolic 135–164; BP diastolic 59–89
[2021-06-15] MEDS: IPRATROPIUM/ALBUTEROL 0.5-3(2.5)MG/3ML NEB HHN SCH ×4 (02:04→19:59)
[2021-06-15] MEDS: HYDROMORPHONE HCL/PF 2MG/ML CPJ IV PRN ×2 (03:55)
[2021-06-15] MEDS: DILTIAZEM HCL 30MG TABLET PO SCH ×2 (06:00→15:19)
[2021-06-15] MEDS: HYDRALAZINE HCL 50MG TABLET PO SCH ×2 (06:00→15:18)
[2021-06-15] MEDS: BLOOD SUGAR DIAGNOSTIC STRIP TEST SCH ×3 (06:05→16:38)
[2021-06-15] MEDS: INSULIN LISPRO 100 UNITS/ML SUBCUT SCH ×3 (06:14→16:38)
[2021-06-15 07:23] LABS: BASOPHILS % 0.5 % (0.0-2.0); EOSINOPHILS % 4.9 % (0.0-5.0); HEMATOCRIT. 22.8 % (36.0-48.0); HEMOGLOBIN. 7.8 g/dL (12.0-16.0); LYMPHOCYTES % 13.2 % (20.0-50.0); MEAN CORPUSCULAR HEMOGLOBIN 28.7 pg (28.0-32.0); MEAN CORPUSCULAR VOLUME 83.9 fL (81.0-99.0); MONOCYTES % 7.1 % (2.0-8.0); NEUTROPHILS % 74.3 % (40.0-76.0); PLATELET 254 x1000/uL (130-400); RED BLOOD CELL COUNT 2.72 mill/uL (4.2-5.4)
[2021-06-15 07:54] LABS: PHOSPHORUS 3.1 mg/dL (2.5-4.9)
[2021-06-15] MEDS: DOCUSATE SODIUM 100MG CAPSULE PO PRN (08:50)
[2021-06-15] MEDS: ASPIRIN 81MG TABLET PO SCH (08:50)
[2021-06-15] MEDS: TAMSULOSIN HCL 0.4MG SR CAPSULE PO SCH (08:51)
[2021-06-15] MEDS: CARVEDILOL 12.5MG TABLET PO SCH (08:55)
[2021-06-15] MEDS: MORPHINE SULFATE 2 MG/ML CPJ (NOT FOR IM USE) IV PRN ×2 (08:56→15:18)
[2021-06-15] MEDS: LIDOCAINE 5% PATCH TOP SCH ×2 (08:57→09:00)
[2021-06-15] MEDS: PANTOPRAZOLE SODIUM 40 MG/VIAL IV SCH ×2 (08:57→17:00)
[2021-06-15] MEDS: FERROUS SULFATE 325MG TABLET PO SCH (09:20)
[2021-06-15] MEDS: DOCUSATE SODIUM 250MG CAPSULE PO SCH (09:20)
[2021-06-15] MEDS ORDERED: HYDR-4009 MT (13:41)
== END 2021-06-15 20:45 | disposition home health service (06) | DRG 25 ==
LOC: ER 02:57 → 8WST 04:45 → ENRESERV 07:10 → ER 08:22 → 3WST 21:33 → CVICU 06-12 08:44 → 8WST 06-15 03:04
PROVIDERS: ADMIT Internal Medicine Pulmonary Disease; ATTEND Internal Medicine Pulmonary Disease
PROC: 5A09457 Assistance with Respiratory Ventilation, 24-96 Consecutive Hours, Continuous Positive Airway Pressure (ICD-10-PCS; 2021-06-06)
PROC: 02HV33Z Insertion of Infusion Device into Superior Vena Cava, Percutaneous Approach (ICD-10-PCS; 2021-06-07)
PROC: B548ZZA Ultrasonography of Superior Vena Cava, Guidance (ICD-10-PCS; 2021-06-07)
PROC: 5A09357 Assistance with Respiratory Ventilation, Less than 24 Consecutive Hours, Continuous Positive Airway Pressure (ICD-10-PCS; 2021-06-09)
PROC: 03C Upper Arteries, Extirpation (ICD-10-PCS; principal; 2021-06-12)
PROC: 03CJ3ZZ Extirpation of Matter from Left Common Carotid Artery, Percutaneous Approach (ICD-10-PCS; 2021-06-12)
PROC: 03CL3ZZ Extirpation of Matter from Left Internal Carotid Artery, Percutaneous Approach (ICD-10-PCS; 2021-06-12)
PROC: 30233N1 Transfusion of Nonautologous Red Blood Cells into Peripheral Vein, Percutaneous Approach (ICD-10-PCS; 2021-06-14)
DX: I65.23 Occlusion and stenosis of bilateral carotid arteries (principal); E43 Unspecified severe protein-calorie malnutrition; J96.91 Respiratory failure, unspecified with hypoxia; J18.9 Pneumonia, unspecified organism; N17.9 Acute kidney failure, unspecified; I13.0 Hypertensive heart and chronic kidney disease with heart failure and stage 1 through stage 4 chronic kidney disease, or unspecified chronic kidney disease; I50.30 Unspecified diastolic (congestive) heart failure; D64.9 Anemia, unspecified; E78.5 Hyperlipidemia, unspecified; E87.5 Hyperkalemia; I27.29 Other secondary pulmonary hypertension; K59.00 Constipation, unspecified; I27.81 Cor pulmonale (chronic); N18.30 Chronic kidney disease, stage 3 unspecified; J44.9 Chronic obstructive pulmonary disease, unspecified; Z20.822 Contact with and (suspected) exposure to COVID-19; E11.22 Type 2 diabetes mellitus with diabetic chronic kidney disease; M48.061 Spinal stenosis, lumbar region without neurogenic claudication; E66.01 Morbid (severe) obesity due to excess calories; I36.1 Nonrheumatic tricuspid (valve) insufficiency; Z83.3 Family history of diabetes mellitus; Z87.891 Personal history of nicotine dependence; Z82.49 Family history of ischemic heart disease and other diseases of the circulatory system; Z68.32 Body mass index [BMI] 32.0-32.9, adult; G90.9 Disorder of the autonomic nervous system, unspecified; R33.9 Retention of urine, unspecified
CPT/HCPCS: 36415; 36600; 70547; 71045; 71250; 72148; 76770; 76937; 78582; 80048; 80053; 80061; 80076; 80202; 81003; 82270; 82375; 82550; 82607; 82728; 82746; 82784; 82805; 82962; 83036; 83540; 83550; 83605; 83735; 83880; 84100; 84145; 84439; 84443; 84484; 85014; 85018; 85025; 85044; 85379; 86334; 86850; 86900; 86920; 87426; 88304; 88311; 93005; 93306; 93880; 93970; 94640; 97110; 97162; 97165; 97530; 97535; 99291; A9558; C1725; C9113; J1100; J1170; J1644; J1650; J1815; J1940; J1956; J2250; J2270; J2405; J2543; J2704; J2710; J3010; J3370; J3490; J7030; J7060; P9016; A4315

== ENCOUNTER 2021-06-24 12:11 | Emergency (ER) | payer MEDICARE, MEDICAID ==
[~2021-06-24] VITALS: Ht 167.6 cm; Wt 86.0 kg
[~2021-06-24 12:11] MED LIST changes: +AMLO5TAB88 MT; -ASA; +ASPI-1497 MT; +FURO-152 MT; +HYDR-4009 MT; +HYDR100T26 MT; +INSLIS SUBCUT; +LEVVL SQ; +LIP40 PO; +SENN1TAB35 PO; +SITA25TA3 MT
[2021-06-24] MEDS ORDERED: SODIUM CHLORIDE 0.9% 500 ML IV ONE (12:30)
[2021-06-24] MEDS ORDERED: ACETAMINOPHEN 325MG TABLET PO ONE (12:30)
[2021-06-24] MEDS ORDERED: CEFEPIME 2,000 MG in DEXT 5% WATER 100 ML IV SCH (12:45)
[2021-06-24] MEDS ORDERED: VANCOMYCIN 1G PREMIX 200 ML IV SCH (12:45)
[2021-06-24 14:10] LABS: CHLORIDE 104 mEq/L (98-107)
[2021-06-24 14:17] LABS: BETA HYDROXYBUTYRATE 0.3 mMol/L (0.0-0.3)
[2021-06-24 14:36] LABS: HEMATOCRIT. 26.4 % (36.0-48.0); HEMOGLOBIN. 8.5 g/dL (12.0-16.0); MEAN CORPUSCULAR HEMOGLOBIN 27.3 pg (28.0-32.0); MEAN CORPUSCULAR VOLUME 85.4 fL (81.0-99.0); MEAN PLATELET VOLUME 6.8 fl (7.4-10.4); RED BLOOD CELL COUNT 3.09 mill/uL (4.2-5.4); RED CELL DISTRIBUTION WIDTH 17.1 % (11.6-14.6)
[2021-06-24 14:39] LABS: PLATELET 417 x1000/uL (130-400)
[2021-06-24 14:54] LABS: PLATELET ESTIMATE SLIGHTLY INCREASED
[2021-06-24 15:51] LABS: CLARITY URINE CLEAR (CLEAR); COLOR URINE YELLOW (YELLOW); KETONES URINE NEGATIVE (NEGATIVE); LEUKOCYTE ESTERASE URINE NEGATIVE (NEGATIVE); NITRITE URINE NEGATIVE (NEGATIVE); OCCULT BLOOD URINE NEGATIVE (NEGATIVE); PROTEIN URINE 4+ (NEGATIVE); SPECIFIC GRAVITY URINE 1.018 (1.005-1.030); UROBILINOGEN URINE 0.2 E.U./dL (0.2-1.0)
[2021-06-24 20:01] VITALS: BP 136/55
[2021-06-24] MEDS ORDERED: KETOROLAC 15MG/ML VIAL IV ONE (21:30)
== END 2021-06-25 00:29 | disposition short-term general hospital (02) ==
LOC: ER 12:39
DX: A41.9 Sepsis, unspecified organism (principal); I11.0 Hypertensive heart disease with heart failure; I50.9 Heart failure, unspecified; E11.9 Type 2 diabetes mellitus without complications; Z79.899 Other long term (current) drug therapy; Z20.822 Contact with and (suspected) exposure to COVID-19
CPT/HCPCS: 36415; 71045; 80053; 81003; 82010; 82962; 83605; 83735; 83880; 84100; 84484; 85025; 87040; 87086; 87426; 93005; 96365; 96366; 96368; 96375; 99285; J0692; J1885; J3370; J7040; J7060

== ENCOUNTER 2021-08-15 15:10 | Inpatient (IN) | payer MEDICARE, MEDICAID ==
[~2021-08-15] VITALS: Ht 167.6 cm; Wt 89.8 kg
[~2021-08-15 15:10] MED LIST changes: -AMLO5TAB88 MT; +FURO-151 MT; -FURO-152 MT; +HYDR100T26 PO; -LISINOPRIL; +LOSA100T32 MT; -METOPROLOL; +NIFE-32 PO
[2021-08-15] MEDS ORDERED: FUROSEMIDE 40MG/4ML VIAL IVP NR (16:00)
[2021-08-15 16:22] LABS: HEMATOCRIT. 21.8 % (36.0-48.0); HEMOGLOBIN. 7.3 g/dL (12.0-16.0); MEAN CORPUSCULAR HEMOGLOBIN 28.8 pg (28.0-32.0); MEAN CORPUSCULAR VOLUME 85.5 fL (81.0-99.0); MEAN PLATELET VOLUME 6.5 fl (7.4-10.4); PLATELET 263 x1000/uL (130-400); RED BLOOD CELL COUNT 2.55 mill/uL (4.2-5.4); RED CELL DISTRIBUTION WIDTH 16.9 % (11.6-14.6)
[2021-08-15 16:27] LABS: BG BASE EXCESS 1.6 mmol/L (-2.0-2.0); BG CARBOXYHEMOGLOBIN 0.6 % (0.5-1.5); BG DEOXYHEMOGLOBIN 13.2 % (0.0-5.0); BG FRACTION INSPIRED OXYGEN 36; BG HCO3 ACT 25.8 mmol/L (22.0-26.0); BG METHEMOGLOBIN 0.3 % (0.0-1.5); BG OXYGEN SATURATION 86.7 % (92.0-98.5); BG OXYHEMOGLOBIN 85.9 % (94.0-97.0); BG PCO2 38.8 mmHg (35.0-45.0); BG PH 7.441 (7.350-7.450); BG PO2 52.1 mmHg (75.0-100.0); BG SAMPLE SITE RIGHT BRACHIAL; BG VENT MODE NASAL CANNULA
[2021-08-15 17:02] LABS: PLATELET ESTIMATE NORMAL
[2021-08-15] MEDS ORDERED: ACETAMINOPHEN 325MG TABLET PO ONE (17:45)
[2021-08-15] MEDS ORDERED: PANTOPRAZOLE SODIUM 40 MG/VIAL IV ONE (17:45)
[2021-08-15 17:58] LABS: INR 1.1; PROTHROMBIN TIME 11.5 sec (9.6-11.0)
[2021-08-15] MEDS ORDERED: ONDANSETRON HCL 4MG/2ML INJ IV PRN (20:30)
[2021-08-15] MEDS ORDERED: DOCUSATE SODIUM 100MG CAPSULE PO PRN (20:30)
[2021-08-15] MEDS: ATORVASTATIN CALCIUM 40MG TABLET PO SCH (21:56)
[2021-08-15] MEDS: PANTOPRAZOLE 40MG DR TABLET PO SCH (21:56)
[2021-08-16] VITALS (10 sets, daily range): BP systolic 123–166; BP diastolic 57–88
[2021-08-16] MEDS: ACETAMINOPHEN 325MG TABLET PO PRN ×3 (01:16→19:07)
[2021-08-16] MEDS: CLONIDINE 0.1MG TABLET PO PRN (01:17)
[2021-08-16] MEDS ORDERED: FUROSEMIDE 40MG/4ML VIAL IVP NR (02:30)
[2021-08-16] MEDS ORDERED: DEXTROSE 50% WATER 50ML SYRINGE IV PRN (05:30)
[2021-08-16] MEDS: BLOOD SUGAR DIAGNOSTIC STRIP TEST SCH ×4 (06:23→21:00)
[2021-08-16] MEDS: PANTOPRAZOLE 40MG DR TABLET PO SCH (06:23)
[2021-08-16 07:42] LABS: HEMATOCRIT. 24.7 % (36.0-48.0); HEMOGLOBIN. 8.3 g/dL (12.0-16.0); MEAN CORPUSCULAR HEMOGLOBIN 28.8 pg (28.0-32.0); MEAN CORPUSCULAR VOLUME 85.6 fL (81.0-99.0); MEAN PLATELET VOLUME 7.3 fl (7.4-10.4); PLATELET 250 x1000/uL (130-400); RED BLOOD CELL COUNT 2.89 mill/uL (4.2-5.4); RED CELL DISTRIBUTION WIDTH 16.5 % (11.6-14.6)
[2021-08-16] MEDS: INSULIN LISPRO 100 UNITS/ML SUBCUT SCH ×4 (07:50→22:13)
[2021-08-16 08:37] LABS: PLATELET ESTIMATE NORMAL
[2021-08-16] MEDS: HYDRALAZINE HCL 100MG TABLET PO SCH ×3 (09:11→18:33)
[2021-08-16] MEDS: NIFEDIPINE XL 60MG TAB PO SCH (09:12)
[2021-08-16] MEDS: LOSARTAN POTASSIUM 100 MG TABLET PO SCH (09:12)
[2021-08-16] MEDS: FUROSEMIDE 40MG/4ML VIAL IVP SCH ×2 (09:12→18:32)
[2021-08-16] MEDS: INSULIN GLARGINE 100 UNITS/ML SUBCUT SCH (09:24)
[2021-08-16 10:31] LABS: INR 1.1; PROTHROMBIN TIME 11.9 sec (9.6-11.0)
[2021-08-16] MEDS: IPRATROPIUM/ALBUTEROL 0.5-3(2.5)MG/3ML NEB HHN PRN (13:36)
[2021-08-16] MEDS: PIPERACILLIN/TAZOBACTAM 3.375 G in DEXTROSE 5% WATER 50 ML IV SCH ×2 (15:56→22:10)
[2021-08-16] MEDS: ATORVASTATIN CALCIUM 40MG TABLET PO SCH (22:11)
[2021-08-17] VITALS: BP 114/49
[2021-08-17] MEDS: ACETAMINOPHEN 325MG TABLET PO PRN ×5 (00:27→20:30)
[2021-08-17 04:00] VITALS: BP 117/59
[2021-08-17] MEDS: IPRATROPIUM/ALBUTEROL 0.5-3(2.5)MG/3ML NEB HHN PRN (05:10)
[2021-08-17] MEDS: BLOOD SUGAR DIAGNOSTIC STRIP TEST SCH ×4 (06:32→21:34)
[2021-08-17] MEDS: PANTOPRAZOLE 40MG DR TABLET PO SCH (06:33)
[2021-08-17] MEDS: PIPERACILLIN/TAZOBACTAM 3.375 G in DEXTROSE 5% WATER 50 ML IV SCH ×3 (06:33→21:35)
[2021-08-17 06:35] LABS: BASOPHILS % 0.5 % (0.0-2.0); EOSINOPHILS % 2.7 % (0.0-5.0); HEMATOCRIT. 21.8 % (36.0-48.0); HEMOGLOBIN. 7.4 g/dL (12.0-16.0); LYMPHOCYTES % 13.4 % (20.0-50.0); MEAN CORPUSCULAR VOLUME 85.3 fL (81.0-99.0); MEAN PLATELET VOLUME 8.2 fl (7.4-10.4); NEUTROPHILS % 77.4 % (40.0-76.0); PLATELET 183 x1000/uL (130-400); RED BLOOD CELL COUNT 2.56 mill/uL (4.2-5.4); RED CELL DISTRIBUTION WIDTH 16.8 % (11.6-14.6)
[2021-08-17] MEDS: INSULIN LISPRO 100 UNITS/ML SUBCUT SCH ×5 (07:50→21:36)
[2021-08-17 08:00] VITALS: BP 119/58
[2021-08-17] MEDS: NIFEDIPINE XL 60MG TAB PO SCH (09:26)
[2021-08-17] MEDS: LOSARTAN POTASSIUM 100 MG TABLET PO SCH (09:27)
[2021-08-17] MEDS: HYDRALAZINE HCL 100MG TABLET PO SCH ×3 (09:27→17:11)
[2021-08-17] MEDS: FUROSEMIDE 40MG/4ML VIAL IVP SCH ×2 (09:36→18:50)
[2021-08-17] MEDS: INSULIN GLARGINE 100 UNITS/ML SUBCUT SCH (09:43)
[2021-08-17 12:00] VITALS: BP 123/56
[2021-08-17 16:00] VITALS: BP 130/75
[2021-08-17 20:00] VITALS: BP 121/53
[2021-08-17] MEDS: TRAMADOL 50MG TABLET PO PRN (21:35)
[2021-08-17] MEDS: ATORVASTATIN CALCIUM 40MG TABLET PO SCH (21:35)
[2021-08-18 02:00] LABS: CLARITY URINE CLEAR (CLEAR); COLOR URINE YELLOW (YELLOW); KETONES URINE NEGATIVE (NEGATIVE); LEUKOCYTE ESTERASE URINE TRACE (NEGATIVE); NITRITE URINE NEGATIVE (NEGATIVE); OCCULT BLOOD URINE NEGATIVE (NEGATIVE); PROTEIN URINE 3+ (NEGATIVE); SPECIFIC GRAVITY URINE 1.016 (1.005-1.030); UROBILINOGEN URINE 0.2 E.U./dL (0.2-1.0)
[2021-08-18] MEDS: TRAMADOL 50MG TABLET PO PRN ×3 (03:39→21:32)
[2021-08-18 04:00] VITALS: BP 129/48
[2021-08-18] MEDS: PIPERACILLIN/TAZOBACTAM 3.375 G in DEXTROSE 5% WATER 50 ML IV SCH ×3 (05:03→21:29)
[2021-08-18] MEDS: PANTOPRAZOLE 40MG DR TABLET PO SCH (06:24)
[2021-08-18] MEDS: BLOOD SUGAR DIAGNOSTIC STRIP TEST SCH ×4 (06:24→21:32)
[2021-08-18 06:27] LABS: BASOPHILS % 0.7 % (0.0-2.0); EOSINOPHILS % 2.9 % (0.0-5.0); HEMATOCRIT. 23.5 % (36.0-48.0); HEMOGLOBIN. 7.9 g/dL (12.0-16.0); LYMPHOCYTES % 9.2 % (20.0-50.0); MEAN CORPUSCULAR HEMOGLOBIN 29.1 pg (28.0-32.0); MEAN CORPUSCULAR VOLUME 86.6 fL (81.0-99.0); MEAN PLATELET VOLUME 7.5 fl (7.4-10.4); MONOCYTES % 5.4 % (2.0-8.0); NEUTROPHILS % 81.8 % (40.0-76.0); PLATELET 213 x1000/uL (130-400); RED BLOOD CELL COUNT 2.71 mill/uL (4.2-5.4); RED CELL DISTRIBUTION WIDTH 17.1 % (11.6-14.6)
[2021-08-18 07:08] LABS: PHOSPHORUS 4.2 mg/dL (2.5-4.9)
[2021-08-18] MEDS: INSULIN LISPRO 100 UNITS/ML SUBCUT SCH ×4 (07:50→21:30)
[2021-08-18 08:00] VITALS: BP 130/89
[2021-08-18] MEDS: LOSARTAN POTASSIUM 100 MG TABLET PO SCH (08:47)
[2021-08-18] MEDS: HYDRALAZINE HCL 100MG TABLET PO SCH ×2 (08:47→15:19)
[2021-08-18] MEDS: NIFEDIPINE XL 60MG TAB PO SCH (08:47)
[2021-08-18] MEDS: FUROSEMIDE 40MG/4ML VIAL IVP SCH ×2 (08:48→17:48)
[2021-08-18] MEDS: INSULIN GLARGINE 100 UNITS/ML SUBCUT SCH (08:49)
[2021-08-18] MEDS: GABAPENTIN 100MG CAPSULE PO SCH ×3 (10:24→21:29)
[2021-08-18 12:00] VITALS: BP 125/74
[2021-08-18 16:00] VITALS: BP 128/65
[2021-08-18] MEDS: ACETAMINOPHEN 325MG TABLET PO PRN (19:36)
[2021-08-18 20:00] VITALS: BP 150/54
[2021-08-18] MEDS: ATORVASTATIN CALCIUM 40MG TABLET PO SCH (21:29)
[2021-08-19] VITALS (7 sets, daily range): BP systolic 125–160; BP diastolic 42–73
[2021-08-19] MEDS: PIPERACILLIN/TAZOBACTAM 3.375 G in DEXTROSE 5% WATER 50 ML IV SCH ×3 (05:24→21:54)
[2021-08-19] MEDS: GABAPENTIN 100MG CAPSULE PO SCH ×3 (05:24→21:54)
[2021-08-19] MEDS: TRAMADOL 50MG TABLET PO PRN ×2 (05:24→19:55)
[2021-08-19] MEDS: BLOOD SUGAR DIAGNOSTIC STRIP TEST SCH ×4 (07:01→21:50)
[2021-08-19] MEDS: INSULIN LISPRO 100 UNITS/ML SUBCUT SCH ×4 (07:03→21:55)
[2021-08-19] MEDS: LOSARTAN POTASSIUM 100 MG TABLET PO SCH (08:11)
[2021-08-19] MEDS: NIFEDIPINE XL 60MG TAB PO SCH (08:12)
[2021-08-19] MEDS: FUROSEMIDE 40MG/4ML VIAL IVP SCH ×2 (08:12→17:54)
[2021-08-19] MEDS: ACETAMINOPHEN 325MG TABLET PO PRN ×2 (10:01→17:44)
[2021-08-19] MEDS: INSULIN GLARGINE 100 UNITS/ML SUBCUT SCH (10:03)
[2021-08-19] MEDS: PANTOPRAZOLE 40MG DR TABLET PO SCH (10:05)
[2021-08-19] MEDS: HYDRALAZINE HCL 100MG TABLET PO SCH ×4 (10:06→17:55)
[2021-08-19 11:09] LABS: BASOPHILS % 0.9 % (0.0-2.0); EOSINOPHILS % 2.7 % (0.0-5.0); HEMATOCRIT. 28.1 % (36.0-48.0); LYMPHOCYTES % 7.7 % (20.0-50.0); MEAN CORPUSCULAR HEMOGLOBIN 28.2 pg (28.0-32.0); MEAN CORPUSCULAR VOLUME 85.8 fL (81.0-99.0); MEAN PLATELET VOLUME 7.5 fl (7.4-10.4); MONOCYTES % 4.8 % (2.0-8.0); NEUTROPHILS % 83.9 % (40.0-76.0); PLATELET 243 x1000/uL (130-400); RED BLOOD CELL COUNT 3.28 mill/uL (4.2-5.4); RED CELL DISTRIBUTION WIDTH 16.9 % (11.6-14.6)
[2021-08-19 11:14] LABS: HEMOGLOBIN. 9.3 g/dL (12.0-16.0)
[2021-08-19 11:19] LABS: PHOSPHORUS 3.2 mg/dL (2.5-4.9)
[2021-08-19] MEDS: ATORVASTATIN CALCIUM 40MG TABLET PO SCH (21:54)
[2021-08-19] MEDS ORDERED: NALOXONE HCL 0.4MG/ML VIAL IV PRN (22:15)
[2021-08-20] VITALS: BP 154/54
[2021-08-20] MEDS: TRAMADOL 50MG TABLET PO PRN ×4 (02:08→20:51)
[2021-08-20] MEDS: CLONIDINE 0.1MG TABLET PO PRN ×2 (03:29→20:50)
[2021-08-20 04:00] VITALS: BP 169/67
[2021-08-20] MEDS: PIPERACILLIN/TAZOBACTAM 3.375 G in DEXTROSE 5% WATER 50 ML IV SCH ×3 (06:02→21:22)
[2021-08-20] MEDS: GABAPENTIN 100MG CAPSULE PO SCH ×3 (06:02→21:22)
[2021-08-20] MEDS: PANTOPRAZOLE 40MG DR TABLET PO SCH (06:29)
[2021-08-20] MEDS: BLOOD SUGAR DIAGNOSTIC STRIP TEST SCH ×4 (06:30→20:51)
[2021-08-20] MEDS: ACETAMINOPHEN 325MG TABLET PO PRN (06:34)
[2021-08-20 08:00] VITALS: BP 177/61
[2021-08-20 08:20] LABS: BASOPHILS % 0.8 % (0.0-2.0); EOSINOPHILS % 2.6 % (0.0-5.0); HEMATOCRIT. 27.7 % (36.0-48.0); HEMOGLOBIN. 9.4 g/dL (12.0-16.0); LYMPHOCYTES % 8.7 % (20.0-50.0); MEAN CORPUSCULAR HEMOGLOBIN 29.2 pg (28.0-32.0); MEAN CORPUSCULAR VOLUME 85.6 fL (81.0-99.0); MONOCYTES % 5.1 % (2.0-8.0); NEUTROPHILS % 82.8 % (40.0-76.0); PLATELET 209 x1000/uL (130-400); RED BLOOD CELL COUNT 3.24 mill/uL (4.2-5.4)
[2021-08-20] MEDS: FUROSEMIDE 40MG/4ML VIAL IVP SCH ×2 (08:36→16:50)
[2021-08-20] MEDS: LOSARTAN POTASSIUM 100 MG TABLET PO SCH (08:36)
[2021-08-20] MEDS: NIFEDIPINE XL 60MG TAB PO SCH ×2 (08:37→16:51)
[2021-08-20] MEDS: HYDRALAZINE HCL 100MG TABLET PO SCH ×3 (08:37→16:51)
[2021-08-20] MEDS: INSULIN LISPRO 100 UNITS/ML SUBCUT SCH ×4 (09:14→21:24)
[2021-08-20 09:43] LABS: PHOSPHORUS 2.8 mg/dL (2.5-4.9)
[2021-08-20] MEDS: INSULIN GLARGINE 100 UNITS/ML SUBCUT SCH (10:00)
[2021-08-20 12:00] VITALS: BP 176/62
[2021-08-20 16:00] VITALS: BP 164/64
[2021-08-20 20:00] VITALS: BP 177/59
[2021-08-20] MEDS: ATORVASTATIN CALCIUM 40MG TABLET PO SCH (20:51)
[2021-08-21] VITALS: BP 121/62
[2021-08-21 04:00] VITALS: BP 126/52
[2021-08-21] MEDS: PANTOPRAZOLE 40MG DR TABLET PO SCH (06:37)
[2021-08-21] MEDS: BLOOD SUGAR DIAGNOSTIC STRIP TEST SCH ×4 (06:37→21:30)
[2021-08-21] MEDS: GABAPENTIN 100MG CAPSULE PO SCH ×3 (06:37→21:57)
[2021-08-21] MEDS: PIPERACILLIN/TAZOBACTAM 3.375 G in DEXTROSE 5% WATER 50 ML IV SCH (06:37)
[2021-08-21 07:48] VITALS: BP 140/81
[2021-08-21] MEDS: INSULIN LISPRO 100 UNITS/ML SUBCUT SCH ×4 (09:55→21:57)
[2021-08-21] MEDS: LOSARTAN POTASSIUM 100 MG TABLET PO SCH ×2 (09:55→10:04)
[2021-08-21] MEDS: NIFEDIPINE XL 60MG TAB PO SCH ×3 (09:55→16:52)
[2021-08-21] MEDS: HYDRALAZINE HCL 100MG TABLET PO SCH ×4 (09:55→16:52)
[2021-08-21] MEDS: FUROSEMIDE 40MG/4ML VIAL IVP SCH ×2 (09:56→16:52)
[2021-08-21] MEDS: TRAMADOL 50MG TABLET PO PRN ×2 (10:05→16:53)
[2021-08-21] MEDS: INSULIN GLARGINE 100 UNITS/ML SUBCUT SCH (10:43)
[2021-08-21 12:15] VITALS: BP 128/46
[2021-08-21 16:10] VITALS: BP 128/53
[2021-08-21 16:11] LABS: BASOPHILS % 0.9 % (0.0-2.0); EOSINOPHILS % 2.5 % (0.0-5.0); HEMATOCRIT. 26.2 % (36.0-48.0); HEMOGLOBIN. 8.8 g/dL (12.0-16.0); LYMPHOCYTES % 7.7 % (20.0-50.0); MEAN CORPUSCULAR HEMOGLOBIN 28.7 pg (28.0-32.0); MEAN CORPUSCULAR VOLUME 85.2 fL (81.0-99.0); MEAN PLATELET VOLUME 7.5 fl (7.4-10.4); MONOCYTES % 5.5 % (2.0-8.0); NEUTROPHILS % 83.4 % (40.0-76.0); PLATELET 254 x1000/uL (130-400); RED BLOOD CELL COUNT 3.07 mill/uL (4.2-5.4); RED CELL DISTRIBUTION WIDTH 17.3 % (11.6-14.6)
[2021-08-21 17:02] LABS: PHOSPHORUS 3.9 mg/dL (2.5-4.9)
[2021-08-21 20:00] VITALS: BP 141/57
[2021-08-21] MEDS ORDERED: POTASSIUM CHLORIDE 20MEQ TABLET SR PO NR (20:45)
[2021-08-21] MEDS: ATORVASTATIN CALCIUM 40MG TABLET PO SCH (21:56)
[2021-08-22] VITALS: BP 131/50
[2021-08-22] MEDS: TRAMADOL 50MG TABLET PO PRN ×2 (01:42→19:24)
[2021-08-22 04:00] VITALS: BP 110/64
[2021-08-22] MEDS: BLOOD SUGAR DIAGNOSTIC STRIP TEST SCH ×4 (06:21→21:45)
[2021-08-22] MEDS: PANTOPRAZOLE 40MG DR TABLET PO SCH (06:57)
[2021-08-22] MEDS: GABAPENTIN 100MG CAPSULE PO SCH ×3 (06:57→22:02)
[2021-08-22] MEDS: INSULIN LISPRO 100 UNITS/ML SUBCUT SCH ×4 (07:20→22:03)
[2021-08-22 08:00] VITALS: BP 101/52
[2021-08-22] MEDS: LOSARTAN POTASSIUM 100 MG TABLET PO SCH (08:58)
[2021-08-22] MEDS: HYDRALAZINE HCL 100MG TABLET PO SCH ×3 (08:58→17:56)
[2021-08-22] MEDS: NIFEDIPINE XL 60MG TAB PO SCH ×2 (08:58→17:56)
[2021-08-22] MEDS: ACETAMINOPHEN 325MG TABLET PO PRN (09:00)
[2021-08-22] MEDS: FUROSEMIDE 40MG/4ML VIAL IVP SCH ×2 (09:00→17:56)
[2021-08-22] MEDS: INSULIN GLARGINE 100 UNITS/ML SUBCUT SCH (09:35)
[2021-08-22 11:07] LABS: BASOPHILS % 0.8 % (0.0-2.0); EOSINOPHILS % 2.6 % (0.0-5.0); HEMATOCRIT. 22.6 % (36.0-48.0); HEMOGLOBIN. 7.7 g/dL (12.0-16.0); LYMPHOCYTES % 10.5 % (20.0-50.0); MEAN CORPUSCULAR HEMOGLOBIN 28.9 pg (28.0-32.0); MEAN CORPUSCULAR VOLUME 84.8 fL (81.0-99.0); MEAN PLATELET VOLUME 7.1 fl (7.4-10.4); MONOCYTES % 5.2 % (2.0-8.0); NEUTROPHILS % 80.9 % (40.0-76.0); PLATELET 239 x1000/uL (130-400); RED BLOOD CELL COUNT 2.66 mill/uL (4.2-5.4); RED CELL DISTRIBUTION WIDTH 17.7 % (11.6-14.6)
[2021-08-22 11:47] LABS: PHOSPHORUS 3.3 mg/dL (2.5-4.9)
[2021-08-22 12:00] VITALS: BP 148/60
[2021-08-22] MEDS: FLUCONAZOLE 100MG TABLET PO SCH (13:16)
[2021-08-22 16:00] VITALS: BP 119/37
[2021-08-22 20:00] VITALS: BP 148/64
[2021-08-22] MEDS: ATORVASTATIN CALCIUM 40MG TABLET PO SCH (22:02)
[2021-08-23] VITALS (7 sets, daily range): BP systolic 105–172; BP diastolic 49–79
[2021-08-23] MEDS ORDERED: TRAMADOL 50MG TABLET PO PRN (02:30)
[2021-08-23] MEDS: PANTOPRAZOLE 40MG DR TABLET PO SCH (06:49)
[2021-08-23] MEDS: GABAPENTIN 100MG CAPSULE PO SCH ×3 (06:49→21:55)
[2021-08-23] MEDS: BLOOD SUGAR DIAGNOSTIC STRIP TEST SCH ×4 (06:49→21:33)
[2021-08-23] MEDS: FUROSEMIDE 40MG/4 ML UDC PO SCH ×2 (09:00→19:34)
[2021-08-23] MEDS: FLUCONAZOLE 100MG TABLET PO SCH (09:21)
[2021-08-23] MEDS: LOSARTAN POTASSIUM 100 MG TABLET PO SCH (09:21)
[2021-08-23] MEDS: HYDRALAZINE HCL 100MG TABLET PO SCH ×3 (09:21→17:57)
[2021-08-23] MEDS: NIFEDIPINE XL 60MG TAB PO SCH ×2 (09:22→17:57)
[2021-08-23] MEDS: INSULIN LISPRO 100 UNITS/ML SUBCUT SCH ×4 (09:28→21:57)
[2021-08-23 10:07] LABS: BASOPHILS % 0.7 % (0.0-2.0); HEMOGLOBIN. 7.4 g/dL (12.0-16.0); LYMPHOCYTES % 16.4 % (20.0-50.0); MEAN CORPUSCULAR HEMOGLOBIN 28.6 pg (28.0-32.0); MEAN CORPUSCULAR VOLUME 84.6 fL (81.0-99.0); MEAN PLATELET VOLUME 7.1 fl (7.4-10.4); MONOCYTES % 7.5 % (2.0-8.0); NEUTROPHILS % 71.4 % (40.0-76.0); PLATELET 290 x1000/uL (130-400); RED CELL DISTRIBUTION WIDTH 18.1 % (11.6-14.6)
[2021-08-23 10:17] LABS: PHOSPHORUS 3.2 mg/dL (2.5-4.9)
[2021-08-23] MEDS: INSULIN GLARGINE 100 UNITS/ML SUBCUT SCH (11:26)
[2021-08-23] MEDS ORDERED: FURO80TA87 MT (12:37)
[2021-08-23] MEDS: MAGNESIUM OXIDE 400MG TABLET PO SCH (14:05)
[2021-08-23] MEDS: TRAMADOL 50MG TABLET PO PRN (17:58)
[2021-08-23] MEDS: ATORVASTATIN CALCIUM 40MG TABLET PO SCH (21:55)
[2021-08-24] VITALS (7 sets, daily range): BP systolic 114–135; BP diastolic 39–72
[2021-08-24] MEDS: TRAMADOL 50MG TABLET PO PRN (00:46)
[2021-08-24] MEDS: GABAPENTIN 100MG CAPSULE PO SCH ×3 (06:51→22:14)
[2021-08-24] MEDS: BLOOD SUGAR DIAGNOSTIC STRIP TEST SCH ×4 (06:51→22:13)
[2021-08-24] MEDS: PANTOPRAZOLE 40MG DR TABLET PO SCH (06:51)
[2021-08-24] MEDS: HYDRALAZINE HCL 100MG TABLET PO SCH ×3 (09:52→17:25)
[2021-08-24] MEDS: NIFEDIPINE XL 60MG TAB PO SCH ×2 (09:52→17:25)
[2021-08-24] MEDS: FLUCONAZOLE 100MG TABLET PO SCH (09:53)
[2021-08-24] MEDS: LOSARTAN POTASSIUM 100 MG TABLET PO SCH (09:53)
[2021-08-24] MEDS: MAGNESIUM OXIDE 400MG TABLET PO SCH (09:53)
[2021-08-24] MEDS: INSULIN LISPRO 100 UNITS/ML SUBCUT SCH ×4 (09:54→22:19)
[2021-08-24] MEDS: INSULIN GLARGINE 100 UNITS/ML SUBCUT SCH (09:56)
[2021-08-24] MEDS: ACETAMINOPHEN 325MG TABLET PO PRN (10:04)
[2021-08-24 11:58] LABS: BASOPHILS % 0.8 % (0.0-2.0); EOSINOPHILS % 2.8 % (0.0-5.0); HEMATOCRIT. 22.1 % (36.0-48.0); HEMOGLOBIN. 7.8 g/dL (12.0-16.0); LYMPHOCYTES % 17.9 % (20.0-50.0); MEAN CORPUSCULAR HEMOGLOBIN 29.9 pg (28.0-32.0); MEAN CORPUSCULAR VOLUME 84.4 fL (81.0-99.0); MEAN PLATELET VOLUME 7.2 fl (7.4-10.4); MONOCYTES % 6.8 % (2.0-8.0); NEUTROPHILS % 71.7 % (40.0-76.0); PLATELET 323 x1000/uL (130-400); RED BLOOD CELL COUNT 2.61 mill/uL (4.2-5.4); RED CELL DISTRIBUTION WIDTH 18.8 % (11.6-14.6)
[2021-08-24] MEDS: FUROSEMIDE 40MG/4 ML UDC PO SCH (13:01)
[2021-08-24] MEDS: ATORVASTATIN CALCIUM 40MG TABLET PO SCH (22:14)
[2021-08-25] VITALS (9 sets, daily range): BP systolic 118–136; BP diastolic 41–70
[2021-08-25] MEDS: TRAMADOL 50MG TABLET PO PRN ×3 (03:03→21:30)
[2021-08-25] MEDS: BLOOD SUGAR DIAGNOSTIC STRIP TEST SCH ×4 (07:00→21:24)
[2021-08-25] MEDS: GABAPENTIN 100MG CAPSULE PO SCH ×3 (07:00→21:53)
[2021-08-25] MEDS: PANTOPRAZOLE 40MG DR TABLET PO SCH (07:00)
[2021-08-25] MEDS: LOSARTAN POTASSIUM 100 MG TABLET PO SCH (08:21)
[2021-08-25] MEDS: MAGNESIUM OXIDE 400MG TABLET PO SCH (08:21)
[2021-08-25] MEDS: FLUCONAZOLE 100MG TABLET PO SCH (08:21)
[2021-08-25] MEDS: NIFEDIPINE XL 60MG TAB PO SCH ×2 (08:21→17:17)
[2021-08-25] MEDS: HYDRALAZINE HCL 100MG TABLET PO SCH ×3 (08:21→17:00)
[2021-08-25] MEDS: FUROSEMIDE 40MG/4 ML UDC PO SCH (08:21)
[2021-08-25] MEDS: INSULIN LISPRO 100 UNITS/ML SUBCUT SCH ×4 (08:23→21:27)
[2021-08-25] MEDS: INSULIN GLARGINE 100 UNITS/ML SUBCUT SCH (10:49)
[2021-08-25] MEDS: ATORVASTATIN CALCIUM 40MG TABLET PO SCH (21:24)
[2021-08-26] VITALS (7 sets, daily range): BP systolic 110–147; BP diastolic 44–67
[2021-08-26] MEDS: TRAMADOL 50MG TABLET PO PRN ×2 (03:48→18:34)
[2021-08-26] MEDS: GABAPENTIN 100MG CAPSULE PO SCH ×3 (06:03→22:25)
[2021-08-26] MEDS: BLOOD SUGAR DIAGNOSTIC STRIP TEST SCH ×4 (06:04→21:18)
[2021-08-26] MEDS: FUROSEMIDE 40MG/4 ML UDC PO SCH (08:45)
[2021-08-26] MEDS: FLUCONAZOLE 100MG TABLET PO SCH (08:46)
[2021-08-26] MEDS: ACETAMINOPHEN 325MG TABLET PO PRN (08:46)
[2021-08-26] MEDS: PANTOPRAZOLE 40MG DR TABLET PO SCH (08:46)
[2021-08-26] MEDS: HYDRALAZINE HCL 100MG TABLET PO SCH ×3 (08:46→17:31)
[2021-08-26] MEDS: INSULIN LISPRO 100 UNITS/ML SUBCUT SCH ×4 (08:47→21:00)
[2021-08-26] MEDS: MAGNESIUM OXIDE 400MG TABLET PO SCH (08:49)
[2021-08-26] MEDS: LOSARTAN POTASSIUM 100 MG TABLET PO SCH (09:49)
[2021-08-26] MEDS: NIFEDIPINE XL 60MG TAB PO SCH (09:50)
[2021-08-26] MEDS: INSULIN GLARGINE 100 UNITS/ML SUBCUT SCH (10:39)
[2021-08-26 11:12] LABS: BASOPHILS % 0.8 % (0.0-2.0); EOSINOPHILS % 2.5 % (0.0-5.0); HEMATOCRIT. 23.5 % (36.0-48.0); HEMOGLOBIN. 8.2 g/dL (12.0-16.0); LYMPHOCYTES % 14.6 % (20.0-50.0); MEAN CORPUSCULAR HEMOGLOBIN 29.1 pg (28.0-32.0); MEAN CORPUSCULAR VOLUME 83.2 fL (81.0-99.0); MEAN PLATELET VOLUME 6.8 fl (7.4-10.4); MONOCYTES % 7.5 % (2.0-8.0); NEUTROPHILS % 74.6 % (40.0-76.0); PLATELET 384 x1000/uL (130-400); RED BLOOD CELL COUNT 2.83 mill/uL (4.2-5.4); RED CELL DISTRIBUTION WIDTH 18.9 % (11.6-14.6)
[2021-08-26 12:07] LABS: PHOSPHORUS 3.4 mg/dL (2.5-4.9)
[2021-08-26] MEDS ORDERED: MECL-159 MT (13:33)
[2021-08-26] MEDS ORDERED: SODIUM CHLORIDE 0.9% 1,000 ML IV SCH (14:15)
[2021-08-26] MEDS: SODIUM CHLORIDE 0.9% 1,000 ML IV SCH (16:57)
[2021-08-26] MEDS ORDERED: NALOXONE HCL 0.4MG/ML VIAL IV PRN (19:30)
[2021-08-26] MEDS: ATORVASTATIN CALCIUM 40MG TABLET PO SCH (21:18)
[2021-08-27] VITALS: BP 142/52
[2021-08-27] MEDS: TRAMADOL 50MG TABLET PO PRN ×3 (02:57→21:45)
[2021-08-27 04:00] VITALS: BP_SYST 114; BP_SYST 140; BP_SYST 162; BP_DIAS 54; BP_DIAS 69; BP_DIAS 88
[2021-08-27] MEDS: GABAPENTIN 100MG CAPSULE PO SCH ×3 (05:54→21:37)
[2021-08-27] MEDS: BLOOD SUGAR DIAGNOSTIC STRIP TEST SCH ×4 (06:17→21:45)
[2021-08-27] MEDS: INSULIN LISPRO 100 UNITS/ML SUBCUT SCH ×4 (06:17→21:00)
[2021-08-27] MEDS: ACETAMINOPHEN 325MG TABLET PO PRN ×2 (06:21→18:13)
[2021-08-27] MEDS: SODIUM CHLORIDE 0.9% 1,000 ML IV SCH (06:22)
[2021-08-27 08:00] VITALS: BP 140/53
[2021-08-27] MEDS ORDERED: NIFEDIPINE XL 60MG TAB PO SCH (09:00)
[2021-08-27] MEDS: MAGNESIUM OXIDE 400MG TABLET PO SCH (09:06)
[2021-08-27] MEDS: FLUCONAZOLE 100MG TABLET PO SCH (09:06)
[2021-08-27] MEDS: PANTOPRAZOLE 40MG DR TABLET PO SCH (09:06)
[2021-08-27] MEDS: LOSARTAN POTASSIUM 100 MG TABLET PO SCH (09:06)
[2021-08-27] MEDS: HYDRALAZINE HCL 100MG TABLET PO SCH ×3 (09:06→19:05)
[2021-08-27] MEDS: INSULIN GLARGINE 100 UNITS/ML SUBCUT SCH ×2 (10:00→10:17)
[2021-08-27 12:00] VITALS: BP_SYST 120; BP_SYST 121; BP_SYST 144; BP_DIAS 50; BP_DIAS 51; BP_DIAS 69
[2021-08-27] MEDS: MAGNESIUM/ALUMINUM HYDROXIDE/SIMETHICONE 30ML UDC PO PRN (19:04)
[2021-08-27] MEDS: ATORVASTATIN CALCIUM 40MG TABLET PO SCH (21:37)
[2021-08-27 21:50] VITALS: BP 137/56
[2021-08-28] VITALS (8 sets, daily range): BP systolic 134–157; BP diastolic 54–68
[2021-08-28] MEDS: GABAPENTIN 100MG CAPSULE PO SCH ×3 (06:45→21:28)
[2021-08-28] MEDS: PANTOPRAZOLE 40MG DR TABLET PO SCH (06:45)
[2021-08-28] MEDS: MAGNESIUM/ALUMINUM HYDROXIDE/SIMETHICONE 30ML UDC PO PRN (06:45)
[2021-08-28] MEDS: BLOOD SUGAR DIAGNOSTIC STRIP TEST SCH ×4 (06:51→21:00)
[2021-08-28] MEDS: INSULIN LISPRO 100 UNITS/ML SUBCUT SCH ×4 (06:52→21:29)
[2021-08-28 07:50] LABS: BASOPHILS % 0.7 % (0.0-2.0); EOSINOPHILS % 2.3 % (0.0-5.0); HEMOGLOBIN. 8.7 g/dL (12.0-16.0); LYMPHOCYTES % 14.8 % (20.0-50.0); MEAN CORPUSCULAR HEMOGLOBIN 28.8 pg (28.0-32.0); MEAN CORPUSCULAR VOLUME 85.6 fL (81.0-99.0); MEAN PLATELET VOLUME 6.5 fl (7.4-10.4); MONOCYTES % 5.3 % (2.0-8.0); NEUTROPHILS % 76.9 % (40.0-76.0); PLATELET 420 x1000/uL (130-400); RED BLOOD CELL COUNT 3.04 mill/uL (4.2-5.4); RED CELL DISTRIBUTION WIDTH 18.6 % (11.6-14.6)
[2021-08-28 08:44] LABS: PHOSPHORUS 3.3 mg/dL (2.5-4.9)
[2021-08-28] MEDS: LOSARTAN POTASSIUM 100 MG TABLET PO SCH ×2 (09:00→10:31)
[2021-08-28] MEDS: HYDRALAZINE HCL 100MG TABLET PO SCH ×2 (09:00→10:30)
[2021-08-28] MEDS ORDERED: DILTIAZEM HCL 5MG/ML 5ML VIAL IV NR (09:45)
[2021-08-28] MEDS: FAMOTIDINE 20MG TABLET PO SCH (10:30)
[2021-08-28] MEDS: MAGNESIUM OXIDE 400MG TABLET PO SCH (10:34)
[2021-08-28] MEDS ORDERED: DIGOXIN 500MCG/2ML AMP IV ONE (10:45)
[2021-08-28] MEDS ORDERED: POTASSIUM CHLORIDE 20MEQ TABLET SR PO NR (10:45)
[2021-08-28] MEDS ORDERED: DIGOXIN 500MCG/2ML AMP IV NR (11:09)
[2021-08-28] MEDS ORDERED: DILTIAZEM 125MG/125ML PMX 125 ML IV SCH (12:30)
[2021-08-28] MEDS: INSULIN GLARGINE 100 UNITS/ML SUBCUT SCH (12:52)
[2021-08-28] MEDS ORDERED: DIGOXIN 500MCG/2ML AMP IV PRN (13:00)
[2021-08-28] MEDS: TRAMADOL 50MG TABLET PO PRN (15:20)
[2021-08-28] MEDS: ATORVASTATIN CALCIUM 40MG TABLET PO SCH (21:28)
[2021-08-29] VITALS (12 sets, daily range): BP systolic 136–180; BP diastolic 53–76
[2021-08-29] MEDS: ACETAMINOPHEN 325MG TABLET PO PRN ×4 (00:47→21:24)
[2021-08-29] MEDS: PANTOPRAZOLE 40MG DR TABLET PO SCH (06:32)
[2021-08-29] MEDS: GABAPENTIN 100MG CAPSULE PO SCH ×3 (06:32→21:26)
[2021-08-29 06:57] LABS: BASOPHILS % 0.8 % (0.0-2.0); EOSINOPHILS % 1.4 % (0.0-5.0); HEMOGLOBIN. 8.3 g/dL (12.0-16.0); LYMPHOCYTES % 18.3 % (20.0-50.0); MEAN CORPUSCULAR HEMOGLOBIN 28.2 pg (28.0-32.0); MEAN CORPUSCULAR VOLUME 84.8 fL (81.0-99.0); MEAN PLATELET VOLUME 6.6 fl (7.4-10.4); MONOCYTES % 7.2 % (2.0-8.0); NEUTROPHILS % 72.3 % (40.0-76.0); PLATELET 390 x1000/uL (130-400); RED BLOOD CELL COUNT 2.95 mill/uL (4.2-5.4); RED CELL DISTRIBUTION WIDTH 18.8 % (11.6-14.6)
[2021-08-29] MEDS: BLOOD SUGAR DIAGNOSTIC STRIP TEST SCH ×4 (07:30→21:23)
[2021-08-29 07:40] LABS: PHOSPHORUS 2.9 mg/dL (2.5-4.9)
[2021-08-29] MEDS: INSULIN LISPRO 100 UNITS/ML SUBCUT SCH ×4 (08:00→21:29)
[2021-08-29] MEDS: FAMOTIDINE 20MG TABLET PO SCH (08:50)
[2021-08-29] MEDS: MAGNESIUM OXIDE 400MG TABLET PO SCH (08:54)
[2021-08-29] MEDS: INSULIN GLARGINE 100 UNITS/ML SUBCUT SCH (09:10)
[2021-08-29] MEDS: CLONIDINE 0.1MG TABLET PO PRN (09:24)
[2021-08-29] MEDS ORDERED: DILTIAZEM HCL 60MG TABLET PO SCH (12:15)
[2021-08-29] MEDS: ATORVASTATIN CALCIUM 40MG TABLET PO SCH (21:24)
[2021-08-29] MEDS: DILTIAZEM HCL 60MG TABLET PO SCH (21:26)
[2021-08-30] VITALS (9 sets, daily range): BP systolic 122–169; BP diastolic 53–81
[2021-08-30] MEDS: DILTIAZEM HCL 60MG TABLET PO SCH ×3 (05:13→19:42)
[2021-08-30] MEDS: GABAPENTIN 100MG CAPSULE PO SCH ×3 (05:13→21:10)
[2021-08-30 06:47] LABS: BASOPHILS % 1.1 % (0.0-2.0); EOSINOPHILS % 1.8 % (0.0-5.0); HEMATOCRIT. 27.1 % (36.0-48.0); HEMOGLOBIN. 9.2 g/dL (12.0-16.0); LYMPHOCYTES % 24.7 % (20.0-50.0); MEAN CORPUSCULAR HEMOGLOBIN 28.5 pg (28.0-32.0); MEAN CORPUSCULAR VOLUME 83.9 fL (81.0-99.0); MEAN PLATELET VOLUME 6.1 fl (7.4-10.4); MONOCYTES % 9.6 % (2.0-8.0); NEUTROPHILS % 62.8 % (40.0-76.0); PLATELET 374 x1000/uL (130-400); RED BLOOD CELL COUNT 3.23 mill/uL (4.2-5.4); RED CELL DISTRIBUTION WIDTH 18.1 % (11.6-14.6)
[2021-08-30] MEDS: BLOOD SUGAR DIAGNOSTIC STRIP TEST SCH ×4 (07:30→21:09)
[2021-08-30] MEDS: PANTOPRAZOLE 40MG DR TABLET PO SCH (09:04)
[2021-08-30] MEDS: FAMOTIDINE 20MG TABLET PO SCH (09:04)
[2021-08-30] MEDS: MAGNESIUM OXIDE 400MG TABLET PO SCH (09:12)
[2021-08-30] MEDS: INSULIN LISPRO 100 UNITS/ML SUBCUT SCH ×4 (09:24→21:33)
[2021-08-30] MEDS: INSULIN GLARGINE 100 UNITS/ML SUBCUT SCH (09:24)
[2021-08-30] MEDS: CLONIDINE 0.1MG TABLET PO PRN (09:27)
[2021-08-30] MEDS ORDERED: POTASSIUM CHLORIDE 20MEQ TABLET SR PO NR (11:00)
[2021-08-30] MEDS: ACETAMINOPHEN 325MG TABLET PO PRN ×2 (12:46→21:11)
[2021-08-30] MEDS ORDERED: DILT240C91 MT ×2 (13:24)
[2021-08-30] MEDS: HYDRALAZINE HCL 50MG TABLET PO SCH ×2 (14:24→21:10)
[2021-08-30] MEDS ORDERED: DILTIAZEM HCL 60MG TABLET PO SCH (18:00)
[2021-08-30] MEDS: ATORVASTATIN CALCIUM 40MG TABLET PO SCH (21:10)
[2021-08-31] VITALS (7 sets, daily range): BP systolic 152–170; BP diastolic 63–81
[2021-08-31] MEDS: DILTIAZEM HCL 60MG TABLET PO SCH ×3 (00:14→10:50)
[2021-08-31] MEDS: ACETAMINOPHEN 325MG TABLET PO PRN ×2 (02:18→18:08)
[2021-08-31] MEDS: CLONIDINE 0.1MG TABLET PO PRN (02:19)
[2021-08-31] MEDS: GABAPENTIN 100MG CAPSULE PO SCH ×3 (05:28→21:04)
[2021-08-31] MEDS: HYDRALAZINE HCL 50MG TABLET PO SCH (05:29)
[2021-08-31] MEDS: BLOOD SUGAR DIAGNOSTIC STRIP TEST SCH ×4 (07:30→21:14)
[2021-08-31] MEDS: FAMOTIDINE 20MG TABLET PO SCH (10:50)
[2021-08-31] MEDS: INSULIN GLARGINE 100 UNITS/ML SUBCUT SCH (10:51)
[2021-08-31] MEDS ORDERED: TRAM50TA3 MT (10:52)
[2021-08-31] MEDS: INSULIN LISPRO 100 UNITS/ML SUBCUT SCH ×3 (10:53→21:22)
[2021-08-31] MEDS: DILTIAZEM HCL 30MG TABLET PO SCH ×2 (12:00→17:32)
[2021-08-31] MEDS: MAGNESIUM OXIDE 400MG TABLET PO SCH (13:55)
[2021-08-31] MEDS: HYDRALAZINE HCL 25MG TABLET PO SCH ×2 (14:09→21:04)
[2021-08-31] MEDS: ATORVASTATIN CALCIUM 40MG TABLET PO SCH (21:04)
[2021-09-01] VITALS (7 sets, daily range): BP systolic 156–176; BP diastolic 59–78
[2021-09-01] MEDS: DILTIAZEM HCL 30MG TABLET PO SCH ×3 (00:13→12:00)
[2021-09-01] MEDS: CLONIDINE 0.1MG TABLET PO PRN (00:14)
[2021-09-01] MEDS: ACETAMINOPHEN 325MG TABLET PO PRN ×2 (00:22→07:53)
[2021-09-01] MEDS: GABAPENTIN 100MG CAPSULE PO SCH ×2 (06:08→13:16)
[2021-09-01] MEDS: HYDRALAZINE HCL 25MG TABLET PO SCH (06:09)
[2021-09-01 06:21] LABS: BASOPHILS % 0.9 % (0.0-2.0); EOSINOPHILS % 1.2 % (0.0-5.0); HEMATOCRIT. 24.8 % (36.0-48.0); HEMOGLOBIN. 8.4 g/dL (12.0-16.0); LYMPHOCYTES % 22.4 % (20.0-50.0); MEAN CORPUSCULAR HEMOGLOBIN 28.9 pg (28.0-32.0); MEAN CORPUSCULAR VOLUME 85.7 fL (81.0-99.0); MEAN PLATELET VOLUME 6.1 fl (7.4-10.4); MONOCYTES % 8.4 % (2.0-8.0); NEUTROPHILS % 67.1 % (40.0-76.0); PLATELET 323 x1000/uL (130-400); RED BLOOD CELL COUNT 2.89 mill/uL (4.2-5.4); RED CELL DISTRIBUTION WIDTH 17.9 % (11.6-14.6)
[2021-09-01 07:48] LABS: PHOSPHORUS 4.2 mg/dL (2.5-4.9)
[2021-09-01] MEDS: INSULIN LISPRO 100 UNITS/ML SUBCUT SCH ×2 (07:51→13:23)
[2021-09-01] MEDS: BLOOD SUGAR DIAGNOSTIC STRIP TEST SCH ×2 (08:16→12:51)
[2021-09-01] MEDS: MAGNESIUM OXIDE 400MG TABLET PO SCH (09:13)
[2021-09-01] MEDS: FAMOTIDINE 20MG TABLET PO SCH (09:13)
[2021-09-01] MEDS: INSULIN GLARGINE 100 UNITS/ML SUBCUT SCH (10:56)
[2021-09-01] MEDS ORDERED: DILT30TA38 MT (11:54)
[2021-09-01] MEDS ORDERED: HYDRALAZINE HCL 100MG TABLET PO SCH (14:00)
== END 2021-09-01 17:58 | disposition home health service (06) | DRG 193 ==
LOC: ER 15:10 → 6WST 18:01 → ENRESERV 20:38 → 5EST 08-28 11:49
PROVIDERS: ADMIT Internal Medicine Pulmonary Disease; ATTEND Internal Medicine Pulmonary Disease
PROC: 30233N1 Transfusion of Nonautologous Red Blood Cells into Peripheral Vein, Percutaneous Approach (ICD-10-PCS; principal; 2021-08-15)
PROC: 5A09357 Assistance with Respiratory Ventilation, Less than 24 Consecutive Hours, Continuous Positive Airway Pressure (ICD-10-PCS; 2021-08-16)
PROC: 5A09357 Assistance with Respiratory Ventilation, Less than 24 Consecutive Hours, Continuous Positive Airway Pressure (ICD-10-PCS; 2021-08-17)
DX: J15.9 Unspecified bacterial pneumonia (principal); N17.0 Acute kidney failure with tubular necrosis; J96.01 Acute respiratory failure with hypoxia; J44.1 Chronic obstructive pulmonary disease with (acute) exacerbation; N13.8 Other obstructive and reflux uropathy; J44.0 Chronic obstructive pulmonary disease with (acute) lower respiratory infection; I47.1 Supraventricular tachycardia; I50.22 Chronic systolic (congestive) heart failure; I11.0 Hypertensive heart disease with heart failure; E11.22 Type 2 diabetes mellitus with diabetic chronic kidney disease; E66.9 Obesity, unspecified; D64.9 Anemia, unspecified; I27.20 Pulmonary hypertension, unspecified; E78.5 Hyperlipidemia, unspecified; I48.91 Unspecified atrial fibrillation; I95.1 Orthostatic hypotension; N32.0 Bladder-neck obstruction; N18.30 Chronic kidney disease, stage 3 unspecified; N31.9 Neuromuscular dysfunction of bladder, unspecified; I08.2 Rheumatic disorders of both aortic and tricuspid valves; E78.00 Pure hypercholesterolemia, unspecified; Z20.822 Contact with and (suspected) exposure to COVID-19; R00.1 Bradycardia, unspecified; T50.2X5A Adverse effect of carbonic-anhydrase inhibitors, benzothiadiazides and other diuretics, initial encounter; Z68.32 Body mass index [BMI] 32.0-32.9, adult; Z87.01 Personal history of pneumonia (recurrent); Z82.49 Family history of ischemic heart disease and other diseases of the circulatory system; Z99.81 Dependence on supplemental oxygen; Y92.89 Other specified places as the place of occurrence of the external cause; Z79.4 Long term (current) use of insulin
CPT/HCPCS: 36415; 36600; 71045; 71250; 80048; 81003; 82270; 82375; 82805; 82962; 83036; 83540; 83550; 83735; 83880; 84100; 84443; 85025; 86850; 86900; 86920; 87106; 87426; 93005; 93306; 94640; 94660; 97162; 97166; 97530; 99285; C9113; J1160; J1815; J1940; J2405; J2543; J3490; J7030; J7060; P9016

== ENCOUNTER 2021-09-05 19:41 | Inpatient (IN) | payer MEDICARE, MEDICAID ==
[~2021-09-05] VITALS: Ht 165.1 cm; Wt 91.6 kg
[~2021-09-05 19:41] MED LIST changes: -AMLODAPINE; +DILT30TA38 MT; -FURO-151 MT; +FURO80TA87 MT; -INSULIN; +MECL-159 MT; -NIFE-32 PO; +TRAM50TA3 MT; -ZETIA
[2021-09-05 21:13] LABS: BASOPHILS % 0.4 % (0.0-2.0); EOSINOPHILS % 0.7 % (0.0-5.0); HEMATOCRIT. 26.6 % (36.0-48.0); HEMOGLOBIN. 8.8 g/dL (12.0-16.0); LYMPHOCYTES % 12.5 % (20.0-50.0); MEAN CORPUSCULAR HEMOGLOBIN 28.7 pg (28.0-32.0); MEAN CORPUSCULAR VOLUME 86.7 fL (81.0-99.0); MEAN PLATELET VOLUME 6.7 fl (7.4-10.4); MONOCYTES % 4.8 % (2.0-8.0); NEUTROPHILS % 81.6 % (40.0-76.0); PLATELET 351 x1000/uL (130-400); RED BLOOD CELL COUNT 3.07 mill/uL (4.2-5.4); RED CELL DISTRIBUTION WIDTH 18.9 % (11.6-14.6)
[2021-09-05 21:20] LABS: CHLORIDE 102 mEq/L (98-107)
[2021-09-05] MEDS ORDERED: SODIUM CHLORIDE 0.9% 1,000 ML IV ONE (22:15)
[2021-09-06] VITALS (8 sets, daily range): BP systolic 115–147; BP diastolic 48–67
[2021-09-06] MEDS ORDERED: NA PHOS,M-B/NA PHOS,DI-BA ENEMA 118ML PR PRN (11:00)
[2021-09-06] MEDS ORDERED: DEXTROSE 50% WATER 50ML SYRINGE IV PRN (11:00)
[2021-09-06] MEDS ORDERED: MORPHINE SULFATE 2 MG/ML CPJ (NOT FOR IM USE) IV PRN (11:00)
[2021-09-06] MEDS ORDERED: DIPHENHYDRAMINE 50MG/ML VIAL IV PRN (11:00)
[2021-09-06] MEDS ORDERED: ONDANSETRON HCL 4MG/2ML INJ IV PRN (11:00)
[2021-09-06] MEDS ORDERED: MAGNESIUM/ALUMINUM HYDROXIDE/SIMETHICONE 30ML UDC PO PRN (11:00)
[2021-09-06] MEDS ORDERED: IPRATROPIUM/ALBUTEROL 0.5-3(2.5)MG/3ML NEB NEB PRN (11:00)
[2021-09-06] MEDS ORDERED: DOCUSATE SODIUM 100MG CAPSULE PO PRN (11:00)
[2021-09-06] MEDS ORDERED: GUAIFENESIN 200MG/10ML SUGAR FREE UDC PO PRN (11:00)
[2021-09-06] MEDS ORDERED: ACETAMINOPHEN 650MG SUPP PR PRN (11:00)
[2021-09-06] MEDS ORDERED: CEFTRIAXONE 1 G PREMIX 50 ML IV SCH (11:00)
[2021-09-06] MEDS ORDERED: LORAZEPAM 0.5MG TABLET PO PRN (11:00)
[2021-09-06] MEDS ORDERED: NALOXONE HCL 0.4MG/ML VIAL IV PRN (11:15)
[2021-09-06] MEDS ORDERED: IPRATROPIUM/ALBUTEROL 0.5-3(2.5)MG/3ML NEB HHN PRN (11:30)
[2021-09-06 12:09] LABS: HEMATOCRIT. 27.9 % (36.0-48.0); HEMOGLOBIN. 9.1 g/dL (12.0-16.0); MEAN CORPUSCULAR HEMOGLOBIN 28.3 pg (28.0-32.0); MEAN CORPUSCULAR VOLUME 86.5 fL (81.0-99.0); MEAN PLATELET VOLUME 6.5 fl (7.4-10.4); PLATELET 391 x1000/uL (130-400); RED BLOOD CELL COUNT 3.22 mill/uL (4.2-5.4); RED CELL DISTRIBUTION WIDTH 18.9 % (11.6-14.6)
[2021-09-06 12:14] LABS: CHLORIDE 103 mEq/L (98-107)
[2021-09-06] MEDS ORDERED: METHYLPREDNISOLONE SOD SUCC 40 MG/ML VIAL IV NR (12:15)
[2021-09-06 12:24] LABS: PROTHROMBIN TIME 10.8 sec (9.6-11.0)
[2021-09-06 12:29] LABS: PLATELET ESTIMATE NORMAL
[2021-09-06 12:42] LABS: BG BASE EXCESS -1.1 mmol/L (-2.0-2.0); BG CARBOXYHEMOGLOBIN 1.2 % (0.5-1.5); BG DEOXYHEMOGLOBIN 12.2 % (0.0-5.0); BG FRACTION INSPIRED OXYGEN 60; BG HCO3 ACT 23.4 mmol/L (22.0-26.0); BG METHEMOGLOBIN 0.2 % (0.0-1.5); BG OXYGEN SATURATION 87.6 % (92.0-98.5); BG OXYHEMOGLOBIN 86.4 % (94.0-97.0); BG PCO2 38.1 mmHg (35.0-45.0); BG PH 7.406 (7.350-7.450); BG SAMPLE SITE RIGHT BRACHIAL; BG TOTAL HEMOGLOBIN 10.4 g/dL (12.0-18.0); BG VENT MODE MASK - SIMPLE
[2021-09-06] MEDS: BLOOD SUGAR DIAGNOSTIC STRIP TEST SCH ×3 (13:00→21:00)
[2021-09-06] MEDS ORDERED: IPRATROPIUM/ALBUTEROL 0.5-3(2.5)MG/3ML NEB HHN NR (13:00)
[2021-09-06] MEDS ORDERED: VANCOMYCIN 1.25GM PMX (XELLIA) 250 ML IV NR (14:00)
[2021-09-06] MEDS ORDERED: DILTIAZEM HCL 30MG TABLET PO SCH (14:00)
[2021-09-06] MEDS: CEFTRIAXONE 1,000 MG in DEXTROSE 5% WATER 50 ML IV SCH (14:20)
[2021-09-06] MEDS: INSULIN LISPRO 100 UNITS/ML SUBCUT SCH ×3 (14:40→21:24)
[2021-09-06] MEDS: BUDESONIDE 0.5MG/2ML NEB HHN SCH (14:40)
[2021-09-06 16:19] LABS: CREATINE KINASE MB FRACTION 1.1 ng/mL (0.5-3.6)
[2021-09-06] MEDS: DILTIAZEM HCL 60MG TABLET PO SCH ×2 (17:42→21:23)
[2021-09-06] MEDS: IPRATROPIUM/ALBUTEROL 0.5-3(2.5)MG/3ML NEB HHN SCH (19:55)
[2021-09-06] MEDS ORDERED: EPOETIN ALFA 10000UNITS/ML VIAL SUBCUT NR ×2 (21:00)
[2021-09-06] MEDS: ATORVASTATIN CALCIUM 40MG TABLET PO SCH (21:15)
[2021-09-06] MEDS: FAMOTIDINE 20MG TABLET PO SCH (21:15)
[2021-09-06] MEDS: METHYLPREDNISOLONE SOD SUCC 40 MG/ML VIAL IV SCH (21:23)
[2021-09-06] MEDS: FUROSEMIDE 40MG/4ML VIAL IVP SCH (23:42)
[2021-09-07] VITALS (14 sets, daily range): BP systolic 114–151; BP diastolic 46–68
[2021-09-07 00:05] LABS: CREATINE KINASE MB FRACTION 1.5 ng/mL (0.5-3.6)
[2021-09-07] MEDS ORDERED: ASPIRIN 81MG TABLET PO NR (02:00)
[2021-09-07] MEDS: IPRATROPIUM/ALBUTEROL 0.5-3(2.5)MG/3ML NEB HHN SCH ×4 (02:40→19:51)
[2021-09-07] MEDS: BUDESONIDE 0.5MG/2ML NEB HHN SCH ×3 (02:41→19:51)
[2021-09-07] MEDS: METHYLPREDNISOLONE SOD SUCC 40 MG/ML VIAL IV SCH ×2 (05:19→13:42)
[2021-09-07] MEDS: DILTIAZEM HCL 60MG TABLET PO SCH ×3 (05:20→22:10)
[2021-09-07 06:29] LABS: HEMATOCRIT. 24.7 % (36.0-48.0); HEMOGLOBIN. 8.3 g/dL (12.0-16.0); MEAN CORPUSCULAR HEMOGLOBIN 28.9 pg (28.0-32.0); MEAN CORPUSCULAR VOLUME 86.3 fL (81.0-99.0); MEAN PLATELET VOLUME 7.1 fl (7.4-10.4); PLATELET 319 x1000/uL (130-400); RED BLOOD CELL COUNT 2.86 mill/uL (4.2-5.4); RED CELL DISTRIBUTION WIDTH 18.5 % (11.6-14.6)
[2021-09-07] MEDS: GABAPENTIN 300MG CAPSULE PO SCH ×2 (06:32→18:46)
[2021-09-07 06:54] LABS: CHLORIDE 101 mEq/L (98-107)
[2021-09-07 07:08] LABS: PHOSPHORUS 4.5 mg/dL (2.5-4.9)
[2021-09-07] MEDS: BLOOD SUGAR DIAGNOSTIC STRIP TEST SCH ×5 (07:30→21:00)
[2021-09-07 08:26] LABS: BG BASE EXCESS -2.6 mmol/L (-2.0-2.0); BG CARBOXYHEMOGLOBIN 0.7 % (0.5-1.5); BG DEOXYHEMOGLOBIN 7.2 % (0.0-5.0); BG FRACTION INSPIRED OXYGEN 40; BG HCO3 ACT 21.5 mmol/L (22.0-26.0); BG METHEMOGLOBIN 0.4 % (0.0-1.5); BG OXYGEN SATURATION 92.7 % (92.0-98.5); BG OXYHEMOGLOBIN 91.7 % (94.0-97.0); BG PCO2 34.3 mmHg (35.0-45.0); BG PH 7.416 (7.350-7.450); BG PO2 65.7 mmHg (75.0-100.0); BG SAMPLE SITE RIGHT RADIAL; BG TOTAL HEMOGLOBIN 8.4 g/dL (12.0-18.0); BG VENT MODE NASAL CANNULA
[2021-09-07] MEDS: FUROSEMIDE 40MG/4ML VIAL IVP SCH ×2 (10:02→22:09)
[2021-09-07] MEDS: ASPIRIN 81MG TABLET PO SCH (10:02)
[2021-09-07] MEDS ORDERED: DEXTROSE 50% WATER 50ML SYRINGE IV PRN (10:15)
[2021-09-07] MEDS ORDERED: INSULIN LISPRO 100 UNITS/ML SUBCUT NR ×2 (10:30→13:15)
[2021-09-07] MEDS: INSULIN LISPRO 100 UNITS/ML SUBCUT SCH ×3 (13:08→22:09)
[2021-09-07] MEDS: CEFTRIAXONE 1,000 MG in DEXTROSE 5% WATER 50 ML IV SCH (13:42)
[2021-09-07 14:22] LABS: PLATELET ESTIMATE NORMAL
[2021-09-07] MEDS ORDERED: INSULIN GLARGINE 100 UNITS/ML SUBCUT SCH (14:45)
[2021-09-07] MEDS ORDERED: INSULIN GLARGINE 100 UNITS/ML SUBCUT NR (22:04)
[2021-09-07] MEDS: ATORVASTATIN CALCIUM 40MG TABLET PO SCH (22:10)
[2021-09-07] MEDS: HYDROCODONE/ACETAMINOPHEN 5/325MG TABLET PO PRN (22:10)
[2021-09-07] MEDS: FAMOTIDINE 20MG TABLET PO SCH (22:11)
[2021-09-08 00:06] VITALS: BP 145/60
[2021-09-08] MEDS: IPRATROPIUM/ALBUTEROL 0.5-3(2.5)MG/3ML NEB HHN SCH ×4 (02:31→22:23)
[2021-09-08 04:00] VITALS: BP 144/65
[2021-09-08] MEDS: BLOOD SUGAR DIAGNOSTIC STRIP TEST SCH ×4 (05:43→20:46)
[2021-09-08] MEDS: DILTIAZEM HCL 60MG TABLET PO SCH ×3 (05:45→21:38)
[2021-09-08] MEDS: GABAPENTIN 300MG CAPSULE PO SCH ×2 (05:45→17:00)
[2021-09-08] MEDS: INSULIN LISPRO 100 UNITS/ML SUBCUT SCH ×4 (05:47→20:46)
[2021-09-08 06:23] LABS: HEMATOCRIT. 23.5 % (36.0-48.0); HEMOGLOBIN. 7.9 g/dL (12.0-16.0); MEAN CORPUSCULAR HEMOGLOBIN 28.6 pg (28.0-32.0); MEAN CORPUSCULAR VOLUME 85.5 fL (81.0-99.0); PLATELET 310 x1000/uL (130-400); RED BLOOD CELL COUNT 2.75 mill/uL (4.2-5.4); RED CELL DISTRIBUTION WIDTH 18.6 % (11.6-14.6)
[2021-09-08 06:47] LABS: CHLORIDE 101 mEq/L (98-107)
[2021-09-08 07:55] VITALS: BP 148/60
[2021-09-08] MEDS: ASPIRIN 81MG TABLET PO SCH (08:28)
[2021-09-08] MEDS: FUROSEMIDE 40MG/4ML VIAL IVP SCH ×2 (08:28→20:46)
[2021-09-08] MEDS: BUDESONIDE 0.5MG/2ML NEB HHN SCH ×2 (08:38→22:21)
[2021-09-08] MEDS: INSULIN GLARGINE 100 UNITS/ML SUBCUT SCH ×2 (09:42→21:38)
[2021-09-08] MEDS ORDERED: INSULIN GLARGINE 100 UNITS/ML SUBCUT SCH (10:00)
[2021-09-08] MEDS: HYDROCODONE/ACETAMINOPHEN 5/325MG TABLET PO PRN ×2 (10:57→21:39)
[2021-09-08 11:42] VITALS: BP 147/58
[2021-09-08] MEDS ORDERED: INSULIN LISPRO 100 UNITS/ML SUBCUT NR (11:45)
[2021-09-08] MEDS ORDERED: VANCOMYCIN 1500MG in DEXTROSE 5% WATER 250ML IV NR (12:00)
[2021-09-08 12:28] LABS: NUCLEATED RED BLOOD CELLS 2 /100 WBC; PLATELET ESTIMATE NORMAL
[2021-09-08] MEDS ORDERED: LIDOCAINE HCL/EPINEPHRINE 1%-EPI 1:100,000 20 ML VIAL ONE (13:33)
[2021-09-08] MEDS ORDERED: VANCOMYCIN 750 MG in DEXT 5% WATER 250 ML IV SCH (14:00)
[2021-09-08] MEDS: CEFTRIAXONE 1,000 MG in DEXTROSE 5% WATER 50 ML IV SCH (14:42)
[2021-09-08 15:29] VITALS: BP 150/74
[2021-09-08 20:00] VITALS: BP 155/74
[2021-09-08] MEDS: FAMOTIDINE 20MG TABLET PO SCH (20:46)
[2021-09-08] MEDS: ATORVASTATIN CALCIUM 40MG TABLET PO SCH (20:46)
[2021-09-08] MEDS: CLONIDINE 0.1MG TABLET PO PRN (21:57)
[2021-09-09] VITALS: BP 147/56
[2021-09-09] MEDS: IPRATROPIUM/ALBUTEROL 0.5-3(2.5)MG/3ML NEB HHN SCH ×4 (03:18→21:34)
[2021-09-09 04:00] VITALS: BP 151/60
[2021-09-09] MEDS: GABAPENTIN 300MG CAPSULE PO SCH ×2 (05:40→16:25)
[2021-09-09] MEDS: DILTIAZEM HCL 60MG TABLET PO SCH ×3 (05:41→21:24)
[2021-09-09] MEDS: BLOOD SUGAR DIAGNOSTIC STRIP TEST SCH ×4 (06:11→21:24)
[2021-09-09] MEDS: INSULIN LISPRO 100 UNITS/ML SUBCUT SCH ×4 (06:11→21:00)
[2021-09-09] MEDS: HYDROCODONE/ACETAMINOPHEN 5/325MG TABLET PO PRN ×3 (06:54→21:41)
[2021-09-09 07:34] VITALS: BP 169/74
[2021-09-09] MEDS: FUROSEMIDE 40MG/4ML VIAL IVP SCH ×2 (08:14→21:24)
[2021-09-09] MEDS: ASPIRIN 81MG TABLET PO SCH (08:15)
[2021-09-09] MEDS: CLONIDINE 0.1MG TABLET PO PRN (08:15)
[2021-09-09] MEDS: BUDESONIDE 0.5MG/2ML NEB HHN SCH (09:14)
[2021-09-09] MEDS: INSULIN GLARGINE 100 UNITS/ML SUBCUT SCH ×2 (10:48→21:39)
[2021-09-09 12:06] VITALS: BP 152/54
[2021-09-09] MEDS: CEFTRIAXONE 1,000 MG in DEXTROSE 5% WATER 50 ML IV SCH (12:32)
[2021-09-09 15:40] VITALS: BP 150/69
[2021-09-09 20:00] VITALS: BP 160/56
[2021-09-09 20:31] LABS: BASOPHILS % 0.4 % (0.0-2.0); EOSINOPHILS % 4.1 % (0.0-5.0); HEMATOCRIT. 23.8 % (36.0-48.0); LYMPHOCYTES % 12.8 % (20.0-50.0); MEAN CORPUSCULAR HEMOGLOBIN 28.5 pg (28.0-32.0); MEAN CORPUSCULAR VOLUME 84.7 fL (81.0-99.0); MEAN PLATELET VOLUME 6.7 fl (7.4-10.4); MONOCYTES % 9.5 % (2.0-8.0); NEUTROPHILS % 73.2 % (40.0-76.0); PLATELET 347 x1000/uL (130-400); RED BLOOD CELL COUNT 2.81 mill/uL (4.2-5.4); RED CELL DISTRIBUTION WIDTH 18.3 % (11.6-14.6)
[2021-09-09] MEDS: ATORVASTATIN CALCIUM 40MG TABLET PO SCH (21:24)
[2021-09-09] MEDS: FAMOTIDINE 20MG TABLET PO SCH (21:24)
[2021-09-10] VITALS (8 sets, daily range): BP systolic 127–192; BP diastolic 51–78
[2021-09-10] MEDS ORDERED: DIGOXIN 500MCG/2ML AMP IV NR
[2021-09-10] MEDS ORDERED: POTASSIUM CHLORIDE 20MEQ TABLET SR PO NR
[2021-09-10] MEDS ORDERED: MAGNESIUM 1 G PREMIX 100 ML IV NR (01:00)
[2021-09-10] MEDS: IPRATROPIUM/ALBUTEROL 0.5-3(2.5)MG/3ML NEB HHN SCH ×4 (02:48→22:00)
[2021-09-10] MEDS: HYDROCODONE/ACETAMINOPHEN 5/325MG TABLET PO PRN ×3 (04:18→21:39)
[2021-09-10] MEDS: CLONIDINE 0.1MG TABLET PO PRN ×3 (04:21→17:04)
[2021-09-10] MEDS: GABAPENTIN 300MG CAPSULE PO SCH ×2 (05:46→17:03)
[2021-09-10] MEDS: DILTIAZEM HCL 60MG TABLET PO SCH ×3 (05:46→21:33)
[2021-09-10] MEDS: BLOOD SUGAR DIAGNOSTIC STRIP TEST SCH ×4 (05:47→21:25)
[2021-09-10] MEDS: INSULIN LISPRO 100 UNITS/ML SUBCUT SCH ×4 (05:47→21:35)
[2021-09-10] MEDS: FUROSEMIDE 40MG/4ML VIAL IVP SCH ×2 (08:09→21:32)
[2021-09-10] MEDS: ASPIRIN 81MG TABLET PO SCH (08:09)
[2021-09-10 08:58] LABS: BASOPHILS % 0.4 % (0.0-2.0); EOSINOPHILS % 5.3 % (0.0-5.0); HEMATOCRIT. 25.3 % (36.0-48.0); HEMOGLOBIN. 8.7 g/dL (12.0-16.0); LYMPHOCYTES % 11.7 % (20.0-50.0); MEAN CORPUSCULAR HEMOGLOBIN 29.4 pg (28.0-32.0); MEAN CORPUSCULAR VOLUME 85.7 fL (81.0-99.0); MEAN PLATELET VOLUME 6.7 fl (7.4-10.4); MONOCYTES % 7.8 % (2.0-8.0); NEUTROPHILS % 74.8 % (40.0-76.0); PLATELET 363 x1000/uL (130-400); RED BLOOD CELL COUNT 2.95 mill/uL (4.2-5.4); RED CELL DISTRIBUTION WIDTH 17.9 % (11.6-14.6)
[2021-09-10 09:14] LABS: PHOSPHORUS 3.1 mg/dL (2.5-4.9)
[2021-09-10] MEDS: INSULIN GLARGINE 100 UNITS/ML SUBCUT SCH ×2 (10:02→21:35)
[2021-09-10] MEDS: CEFTRIAXONE 1,000 MG in DEXTROSE 5% WATER 50 ML IV SCH (11:39)
[2021-09-10] MEDS: FAMOTIDINE 20MG TABLET PO SCH (21:33)
[2021-09-10] MEDS: ATORVASTATIN CALCIUM 40MG TABLET PO SCH (21:33)
[2021-09-11] VITALS: BP 143/58
[2021-09-11] MEDS: IPRATROPIUM/ALBUTEROL 0.5-3(2.5)MG/3ML NEB HHN SCH ×3 (02:46→21:07)
[2021-09-11 04:00] VITALS: BP 172/57
[2021-09-11] MEDS: HYDROCODONE/ACETAMINOPHEN 5/325MG TABLET PO PRN ×2 (04:09→20:40)
[2021-09-11] MEDS: CLONIDINE 0.1MG TABLET PO PRN ×3 (04:09→14:27)
[2021-09-11] MEDS: BLOOD SUGAR DIAGNOSTIC STRIP TEST SCH ×4 (05:34→21:00)
[2021-09-11] MEDS: DILTIAZEM HCL 60MG TABLET PO SCH ×3 (05:59→22:18)
[2021-09-11] MEDS: GABAPENTIN 300MG CAPSULE PO SCH ×2 (05:59→16:48)
[2021-09-11] MEDS: INSULIN LISPRO 100 UNITS/ML SUBCUT SCH ×4 (06:02→22:31)
[2021-09-11 06:59] LABS: BASOPHILS % 0.7 % (0.0-2.0); EOSINOPHILS % 5.1 % (0.0-5.0); HEMATOCRIT. 24.2 % (36.0-48.0); HEMOGLOBIN. 8.3 g/dL (12.0-16.0); LYMPHOCYTES % 11.9 % (20.0-50.0); MEAN CORPUSCULAR HEMOGLOBIN 29.3 pg (28.0-32.0); MEAN CORPUSCULAR VOLUME 85.4 fL (81.0-99.0); MEAN PLATELET VOLUME 6.5 fl (7.4-10.4); MONOCYTES % 6.8 % (2.0-8.0); NEUTROPHILS % 75.5 % (40.0-76.0); PLATELET 359 x1000/uL (130-400); RED BLOOD CELL COUNT 2.84 mill/uL (4.2-5.4); RED CELL DISTRIBUTION WIDTH 18.1 % (11.6-14.6)
[2021-09-11 08:00] VITALS: BP 157/58
[2021-09-11 08:12] LABS: PHOSPHORUS 3.4 mg/dL (2.5-4.9)
[2021-09-11] MEDS: ASPIRIN 81MG TABLET PO SCH (08:24)
[2021-09-11] MEDS: FUROSEMIDE 40MG/4ML VIAL IVP SCH ×2 (08:24→22:18)
[2021-09-11] MEDS: INSULIN GLARGINE 100 UNITS/ML SUBCUT SCH ×2 (09:12→22:34)
[2021-09-11 11:24] VITALS: BP 144/167
[2021-09-11] MEDS: CEFTRIAXONE 1,000 MG in DEXTROSE 5% WATER 50 ML IV SCH (11:52)
[2021-09-11 16:00] VITALS: BP 140/60
[2021-09-11 20:00] VITALS: BP 141/60
[2021-09-11] MEDS ORDERED: NALOXONE HCL 0.4MG/ML VIAL IV PRN (21:45)
[2021-09-11] MEDS: ATORVASTATIN CALCIUM 40MG TABLET PO SCH (22:19)
[2021-09-11] MEDS: FAMOTIDINE 20MG TABLET PO SCH (22:19)
[2021-09-12] VITALS: BP 138/52
[2021-09-12] MEDS: IPRATROPIUM/ALBUTEROL 0.5-3(2.5)MG/3ML NEB HHN SCH ×4 (01:30→21:45)
[2021-09-12] MEDS: HYDROCODONE/ACETAMINOPHEN 5/325MG TABLET PO PRN (03:20)
[2021-09-12 04:00] VITALS: BP 143/56
[2021-09-12] MEDS: GABAPENTIN 300MG CAPSULE PO SCH ×2 (06:18→18:09)
[2021-09-12] MEDS: DILTIAZEM HCL 60MG TABLET PO SCH ×3 (06:19→20:42)
[2021-09-12 06:31] LABS: BASOPHILS % 0.5 % (0.0-2.0); EOSINOPHILS % 4.6 % (0.0-5.0); HEMATOCRIT. 25.3 % (36.0-48.0); HEMOGLOBIN. 8.3 g/dL (12.0-16.0); LYMPHOCYTES % 8.3 % (20.0-50.0); MEAN CORPUSCULAR HEMOGLOBIN 28.2 pg (28.0-32.0); MEAN CORPUSCULAR VOLUME 85.7 fL (81.0-99.0); MEAN PLATELET VOLUME 6.5 fl (7.4-10.4); MONOCYTES % 8.3 % (2.0-8.0); NEUTROPHILS % 78.3 % (40.0-76.0); PLATELET 357 x1000/uL (130-400); RED BLOOD CELL COUNT 2.95 mill/uL (4.2-5.4)
[2021-09-12] MEDS: BLOOD SUGAR DIAGNOSTIC STRIP TEST SCH ×4 (07:10→20:35)
[2021-09-12] MEDS: INSULIN LISPRO 100 UNITS/ML SUBCUT SCH ×4 (07:40→20:41)
[2021-09-12 08:00] VITALS: BP 138/69
[2021-09-12] MEDS: ACETAMINOPHEN 325MG TABLET PO PRN ×4 (08:27→22:58)
[2021-09-12] MEDS: FUROSEMIDE 40MG/4ML VIAL IVP SCH ×2 (08:28→20:42)
[2021-09-12] MEDS: ASPIRIN 81MG TABLET PO SCH (08:28)
[2021-09-12 12:00] VITALS: BP 164/55
[2021-09-12] MEDS: INSULIN GLARGINE 100 UNITS/ML SUBCUT SCH ×2 (12:08→21:17)
[2021-09-12] MEDS: CLONIDINE 0.1MG TABLET PO PRN (12:52)
[2021-09-12 16:00] VITALS: BP 140/58
[2021-09-12 20:00] VITALS: BP 140/50
[2021-09-12] MEDS: ATORVASTATIN CALCIUM 40MG TABLET PO SCH (20:42)
[2021-09-12] MEDS: FAMOTIDINE 20MG TABLET PO SCH (20:42)
[2021-09-13] VITALS: BP 142/56
[2021-09-13] MEDS: IPRATROPIUM/ALBUTEROL 0.5-3(2.5)MG/3ML NEB HHN SCH ×4 (03:20→20:28)
[2021-09-13] MEDS: ACETAMINOPHEN 325MG TABLET PO PRN (03:32)
[2021-09-13 04:00] VITALS: BP 138/61
[2021-09-13] MEDS: DILTIAZEM HCL 60MG TABLET PO SCH ×3 (05:15→21:22)
[2021-09-13] MEDS: GABAPENTIN 300MG CAPSULE PO SCH (05:15)
[2021-09-13] MEDS: INSULIN LISPRO 100 UNITS/ML SUBCUT SCH ×4 (05:15→21:00)
[2021-09-13] MEDS: BLOOD SUGAR DIAGNOSTIC STRIP TEST SCH ×4 (05:15→21:15)
[2021-09-13 07:31] LABS: BASOPHILS % 0.8 % (0.0-2.0); HEMATOCRIT. 25.9 % (36.0-48.0); HEMOGLOBIN. 8.6 g/dL (12.0-16.0); LYMPHOCYTES % 11.9 % (20.0-50.0); MEAN CORPUSCULAR HEMOGLOBIN 28.2 pg (28.0-32.0); MEAN CORPUSCULAR VOLUME 84.9 fL (81.0-99.0); MONOCYTES % 7.1 % (2.0-8.0); NEUTROPHILS % 76.2 % (40.0-76.0); RED BLOOD CELL COUNT 3.05 mill/uL (4.2-5.4); RED CELL DISTRIBUTION WIDTH 17.7 % (11.6-14.6)
[2021-09-13 07:35] LABS: PHOSPHORUS 3.6 mg/dL (2.5-4.9)
[2021-09-13 08:00] VITALS: BP 128/50
[2021-09-13] MEDS: FUROSEMIDE 40MG/4ML VIAL IVP SCH (08:26)
[2021-09-13] MEDS: ASPIRIN 81MG TABLET PO SCH (08:26)
[2021-09-13] MEDS: INSULIN GLARGINE 100 UNITS/ML SUBCUT SCH ×2 (09:12→21:20)
[2021-09-13] MEDS ORDERED: POTASSIUM CHLORIDE 20MEQ TABLET SR PO NR (09:15)
[2021-09-13] MEDS ORDERED: NALOXONE HCL 0.4MG/ML VIAL IV PRN (09:30)
[2021-09-13] MEDS ORDERED: HYDROCODONE/ACETAMINOPHEN 5/325MG TABLET PO NR (09:30)
[2021-09-13 11:51] VITALS: BP 114/62
[2021-09-13] MEDS: LOPERAMIDE HCL 2MG CAPSULE PO PRN (12:06)
[2021-09-13] MEDS ORDERED: GABAPENTIN 300MG CAPSULE PO SCH (13:00)
[2021-09-13 15:36] VITALS: BP 140/72
[2021-09-13] MEDS: HYDROCODONE/ACETAMINOPHEN 5/325MG TABLET PO PRN ×2 (17:41→23:11)
[2021-09-13 20:00] VITALS: BP 140/67
[2021-09-13] MEDS: ATORVASTATIN CALCIUM 40MG TABLET PO SCH (21:22)
[2021-09-13] MEDS: FAMOTIDINE 20MG TABLET PO SCH (21:22)
[2021-09-14] VITALS: BP 138/62
[2021-09-14] MEDS: IPRATROPIUM/ALBUTEROL 0.5-3(2.5)MG/3ML NEB HHN SCH ×2 (02:00→08:17)
[2021-09-14 04:00] VITALS: BP 130/58
[2021-09-14] MEDS: BLOOD SUGAR DIAGNOSTIC STRIP TEST SCH ×2 (05:57→12:10)
[2021-09-14] MEDS: INSULIN LISPRO 100 UNITS/ML SUBCUT SCH ×2 (05:57→12:40)
[2021-09-14] MEDS: DILTIAZEM HCL 60MG TABLET PO SCH ×2 (05:59→14:00)
[2021-09-14] MEDS: HYDROCODONE/ACETAMINOPHEN 5/325MG TABLET PO PRN (06:02)
[2021-09-14 08:00] VITALS: BP 125/51
[2021-09-14] MEDS ORDERED: FUROSEMIDE 40MG/4ML VIAL IVP SCH (08:00)
[2021-09-14] MEDS ORDERED: POTASSIUM CHLORIDE 20MEQ TABLET SR PO SCH (09:00)
[2021-09-14] MEDS: INSULIN GLARGINE 100 UNITS/ML SUBCUT SCH (09:42)
[2021-09-14] MEDS: ASPIRIN 81MG TABLET PO SCH (10:00)
[2021-09-14] MEDS: ACETAMINOPHEN 325MG TABLET PO PRN (10:08)
[2021-09-14 11:49] LABS: BASOPHILS % 0.4 % (0.0-2.0); EOSINOPHILS % 1.1 % (0.0-5.0); HEMATOCRIT. 25.4 % (36.0-48.0); HEMOGLOBIN. 8.5 g/dL (12.0-16.0); LYMPHOCYTES % 8.4 % (20.0-50.0); MEAN CORPUSCULAR HEMOGLOBIN 28.2 pg (28.0-32.0); MEAN CORPUSCULAR VOLUME 84.6 fL (81.0-99.0); MEAN PLATELET VOLUME 6.2 fl (7.4-10.4); MONOCYTES % 8.5 % (2.0-8.0); NEUTROPHILS % 81.6 % (40.0-76.0); PLATELET 375 x1000/uL (130-400); RED CELL DISTRIBUTION WIDTH 17.6 % (11.6-14.6)
[2021-09-14 12:00] VITALS: BP 112/44
[2021-09-14] MEDS: LOPERAMIDE HCL 2MG CAPSULE PO PRN (14:50)
== END 2021-09-14 15:52 | disposition home health service (06) | DRG 189 ==
LOC: ER 19:41 → MICUSO 09-06 00:36 → 6WST 09-06 09:41 → 5EST 09-06 20:30 → 8WST 09-08 02:19
PROVIDERS: ADMIT Internal Medicine Pulmonary Disease; ATTEND Internal Medicine Pulmonary Disease
PROC: 5A09357 Assistance with Respiratory Ventilation, Less than 24 Consecutive Hours, Continuous Positive Airway Pressure (ICD-10-PCS; 2021-09-06)
PROC: 5A09357 Assistance with Respiratory Ventilation, Less than 24 Consecutive Hours, Continuous Positive Airway Pressure (ICD-10-PCS; 2021-09-07)
PROC: 02HV33Z Insertion of Infusion Device into Superior Vena Cava, Percutaneous Approach (ICD-10-PCS; principal; 2021-09-08)
PROC: B548ZZA Ultrasonography of Superior Vena Cava, Guidance (ICD-10-PCS; 2021-09-08)
PROC: B5181ZA Fluoroscopy of Superior Vena Cava using Low Osmolar Contrast, Guidance (ICD-10-PCS; 2021-09-08)
DX: J96.01 Acute respiratory failure with hypoxia (principal); I50.33 Acute on chronic diastolic (congestive) heart failure; J44.1 Chronic obstructive pulmonary disease with (acute) exacerbation; E44.0 Moderate protein-calorie malnutrition; I13.0 Hypertensive heart and chronic kidney disease with heart failure and stage 1 through stage 4 chronic kidney disease, or unspecified chronic kidney disease; N17.9 Acute kidney failure, unspecified; D64.9 Anemia, unspecified; D72.829 Elevated white blood cell count, unspecified; E11.22 Type 2 diabetes mellitus with diabetic chronic kidney disease; E11.65 Type 2 diabetes mellitus with hyperglycemia; E66.9 Obesity, unspecified; E78.5 Hyperlipidemia, unspecified; I08.2 Rheumatic disorders of both aortic and tricuspid valves; E87.6 Hypokalemia; I48.0 Paroxysmal atrial fibrillation; I27.20 Pulmonary hypertension, unspecified; Z20.822 Contact with and (suspected) exposure to COVID-19; T38.0X5A Adverse effect of glucocorticoids and synthetic analogues, initial encounter; M48.061 Spinal stenosis, lumbar region without neurogenic claudication; G47.33 Obstructive sleep apnea (adult) (pediatric); N18.30 Chronic kidney disease, stage 3 unspecified; Z79.4 Long term (current) use of insulin; Z82.49 Family history of ischemic heart disease and other diseases of the circulatory system; Z87.01 Personal history of pneumonia (recurrent); Z99.81 Dependence on supplemental oxygen; Z79.84 Long term (current) use of oral hypoglycemic drugs; Z79.899 Other long term (current) drug therapy; Z79.82 Long term (current) use of aspirin; Y92.89 Other specified places as the place of occurrence of the external cause
CPT/HCPCS: 36415; 36573; 36600; 71045; 72148; 72170; 73030; 76770; 78580; 80048; 80053; 80202; 82375; 82550; 82553; 82805; 82962; 83036; 83735; 83880; 84100; 84145; 84481; 84484; 85025; 87426; 93005; 93970; 94640; 97162; 99291; C1725; C9803; J0696; J0885; J1160; J1815; J1940; J2920; J3370; J3475; J3490; J7030; J7060; J7626

== ENCOUNTER 2022-02-27 06:42 | Inpatient (IN) | payer MEDICARE, MEDICAID ==
[~2022-02-27] VITALS: Ht 170.2 cm; Wt 96.3 kg
[2022-02-27] MEDS ORDERED: FUROSEMIDE 40MG/4ML VIAL IV ONE (07:15)
[2022-02-27] MEDS ORDERED: FUROSEMIDE 40MG/4ML VIAL IV NR (09:00)
[2022-02-27 09:02] LABS: BASOPHILS % 0.7 % (0.0-2.0); EOSINOPHILS % 1.8 % (0.0-5.0); HEMATOCRIT. 25.6 % (36.0-48.0); HEMOGLOBIN. 8.6 g/dL (12.0-16.0); LYMPHOCYTES % 8.8 % (20.0-50.0); MEAN CORPUSCULAR HEMOGLOBIN 29.8 pg (28.0-32.0); MEAN CORPUSCULAR VOLUME 88.5 fL (81.0-99.0); MEAN PLATELET VOLUME 6.8 fl (7.4-10.4); MONOCYTES % 4.7 % (2.0-8.0); PLATELET 341 x1000/uL (130-400); RED BLOOD CELL COUNT 2.89 mill/uL (4.2-5.4); RED CELL DISTRIBUTION WIDTH 16.7 % (11.6-14.6)
[2022-02-27] MEDS ORDERED: AZITHROMYCIN 500 MG in DEXT 5% WATER 250 ML IV SCH (09:30)
[2022-02-27] MEDS ORDERED: CEFTRIAXONE 1 G PREMIX 50 ML IV ONE (09:30)
[2022-02-27 09:32] LABS: CLARITY URINE CLEAR (CLEAR); COLOR URINE YELLOW (YELLOW); KETONES URINE NEGATIVE (NEGATIVE); LEUKOCYTE ESTERASE URINE TRACE (NEGATIVE); NITRITE URINE NEGATIVE (NEGATIVE); OCCULT BLOOD URINE NEGATIVE (NEGATIVE); PROTEIN URINE 3+ (NEGATIVE); SPECIFIC GRAVITY URINE 1.013 (1.005-1.030); UROBILINOGEN URINE 0.2 E.U./dL (0.2-1.0)
[2022-02-27 09:39] LABS: CHLORIDE 107 mEq/L (98-107)
[2022-02-27] MEDS ORDERED: AZITHROMYCIN 500MG/250ML 250 ML IV NR (10:00)
[2022-02-27] MEDS ORDERED: SENNOSIDES/DOCUSATE SOD 8.6/50MG TABLET PO PRN (15:45)
[2022-02-27] MEDS ORDERED: INSULIN LISPRO 100 UNITS/ML SUBCUT SCH (15:45)
[2022-02-27] MEDS ORDERED: DOCUSATE SODIUM 100MG CAPSULE PO PRN (16:00)
[2022-02-27] MEDS ORDERED: ZOLPIDEM TARTRATE 5MG TABLET PO PRN (16:00)
[2022-02-27] MEDS ORDERED: DILTIAZEM HCL 180MG CAPSULE CD 24HR PO NR (16:00)
[2022-02-27] MEDS ORDERED: ONDANSETRON HCL 4MG/2ML INJ IV PRN (16:00)
[2022-02-27] MEDS ORDERED: ACETAMINOPHEN 325MG TABLET PO PRN (16:00)
[2022-02-27] MEDS ORDERED: GUAIFENESIN 200MG/10ML SUGAR FREE UDC PO PRN (16:00)
[2022-02-27] MEDS: LOSARTAN POTASSIUM 100 MG TABLET PO SCH (16:02)
[2022-02-27] MEDS: ASPIRIN 81MG EC TABLET PO SCH (16:03)
[2022-02-27] MEDS: ENOXAPARIN 40MG/0.4ML SYR SUBCUT SCH (16:14)
[2022-02-27] MEDS ORDERED: PIPERACILLIN/TAZ 3.375G PREMIX 50 ML IV SCH (16:30)
[2022-02-27] MEDS ORDERED: DEXTROSE 50% WATER 50ML SYRINGE IV PRN ×2 (16:30)
[2022-02-27] MEDS: HYDRALAZINE HCL 100MG TABLET PO SCH (16:58)
[2022-02-27] MEDS ORDERED: BLOOD SUGAR DIAGNOSTIC STRIP TEST SCH (17:00)
[2022-02-27] MEDS: BLOOD SUGAR DIAGNOSTIC STRIP TEST SCH ×2 (17:13→20:18)
[2022-02-27] MEDS: CLONIDINE 0.1MG TABLET PO PRN (17:28)
[2022-02-27] MEDS ORDERED: INSULIN LISPRO (PRANDIAL)100 UNITS/ML SUBCUT SCH (17:50)
[2022-02-27 18:20] VITALS: BP 171/74
[2022-02-27] MEDS ORDERED: INSULIN REGULAR HUMAN (MEDIUM DOSE) 100 UNITS/ML 3ML VIAL SUBCUT SCH (18:20)
[2022-02-27] MEDS ORDERED: INSULIN REGULAR HUMAN (CUSTOM DOSE) 100 UNITS/ML 3ML VIAL SUBCUT SCH (18:20)
[2022-02-27] MEDS ORDERED: INSULIN LISPRO (HIGH DOSE) 100 UNITS/ML SUBCUT SCH (18:20)
[2022-02-27] MEDS ORDERED: INSULIN REGULAR HUMAN (LOW DOSE) 100 UNITS/ML 3ML VIAL SUBCUT SCH (18:20)
[2022-02-27] MEDS ORDERED: INSULIN LISPRO (MEDIUM DOSE) 100 UNITS/ML SUBCUT SCH (18:20)
[2022-02-27] MEDS ORDERED: INSULIN LISPRO (LOW DOSE) 100 UNITS/ML SUBCUT SCH (18:20)
[2022-02-27] MEDS ORDERED: INSULIN LISPRO (CUSTOM DOSE) 100 UNITS/ML SUBCUT SCH (18:20)
[2022-02-27] MEDS ORDERED: INSULIN REGULAR HUMAN (HIGH DOSE) 100 UNITS/ML 3ML VIAL SUBCUT SCH (18:20)
[2022-02-27] MEDS: INSULIN LISPRO 100 UNITS/ML SUBCUT SCH ×2 (18:53→20:30)
[2022-02-27] MEDS: TRAMADOL 50MG TABLET PO PRN (19:02)
[2022-02-27 20:00] VITALS: BP 144/57
[2022-02-27] MEDS: ATORVASTATIN CALCIUM 40MG TABLET PO SCH (20:28)
[2022-02-27] MEDS ORDERED: INSULIN GLARGINE 100 UNITS/ML SUBCUT SCH (22:00)
[2022-02-27 22:56] VITALS: BP 144/57
[2022-02-28] VITALS (7 sets, daily range): BP systolic 122–181; BP diastolic 46–66
[2022-02-28] MEDS: PIPERACILLIN/TAZOBACTAM 3.375G in DEXT 5% WATER 50ML IV SCH ×3 (02:01→21:07)
[2022-02-28] MEDS: TRAMADOL 50MG TABLET PO PRN ×2 (02:57→17:36)
[2022-02-28] MEDS: CLONIDINE 0.1MG TABLET PO PRN (04:05)
[2022-02-28] MEDS ORDERED: GABA-290 PO (04:35)
[2022-02-28] MEDS ORDERED: AMLO10TA80 PO (04:35)
[2022-02-28] MEDS ORDERED: CHOL400D7 PO (04:35)
[2022-02-28] MEDS: INSULIN LISPRO 100 UNITS/ML SUBCUT SCH ×4 (06:22→21:06)
[2022-02-28] MEDS: BLOOD SUGAR DIAGNOSTIC STRIP TEST SCH ×4 (06:29→20:39)
[2022-02-28] MEDS: HYDRALAZINE HCL 100MG TABLET PO SCH ×3 (08:21→17:37)
[2022-02-28] MEDS: ASPIRIN 81MG EC TABLET PO SCH (08:21)
[2022-02-28] MEDS: LOSARTAN POTASSIUM 100 MG TABLET PO SCH (08:21)
[2022-02-28 10:25] LABS: BG BASE EXCESS -0.2 mmol/L (-2.0-2.0); BG CARBOXYHEMOGLOBIN 0.5 % (0.5-1.5); BG DEOXYHEMOGLOBIN 4.3 % (0.0-5.0); BG FRACTION INSPIRED OXYGEN 28; BG HCO3 ACT 23.8 mmol/L (22.0-26.0); BG METHEMOGLOBIN 0.7 % (0.0-1.5); BG OXYGEN SATURATION 95.6 % (92.0-98.5); BG OXYHEMOGLOBIN 94.5 % (94.0-97.0); BG PCO2 36.2 mmHg (35.0-45.0); BG PH 7.436 (7.350-7.450); BG PO2 85.3 mmHg (75.0-100.0); BG SAMPLE SITE RIGHT BRACHIAL; BG TOTAL HEMOGLOBIN 8.4 g/dL (12.0-18.0); BG VENT MODE NASAL CANNULA
[2022-02-28] MEDS: IPRATROPIUM/ALBUTEROL 0.5-3(2.5)MG/3ML NEB HHN PRN ×2 (13:21→15:53)
[2022-02-28] MEDS ORDERED: VANCOMYCIN 2,000 MG in DEXT 5% WATER 500 ML IV NR (14:00)
[2022-02-28 17:33] LABS: BASOPHILS % 0.7 % (0.0-2.0); EOSINOPHILS % 1.3 % (0.0-5.0); HEMATOCRIT. 25.6 % (36.0-48.0); HEMOGLOBIN. 8.3 g/dL (12.0-16.0); MEAN CORPUSCULAR HEMOGLOBIN 29.2 pg (28.0-32.0); MEAN CORPUSCULAR VOLUME 89.9 fL (81.0-99.0); MEAN PLATELET VOLUME 6.7 fl (7.4-10.4); MONOCYTES % 5.6 % (2.0-8.0); NEUTROPHILS % 80.4 % (40.0-76.0); PLATELET 340 x1000/uL (130-400); RED BLOOD CELL COUNT 2.85 mill/uL (4.2-5.4)
[2022-02-28] MEDS: ENOXAPARIN 40MG/0.4ML SYR SUBCUT SCH (17:38)
[2022-02-28] MEDS: FUROSEMIDE 40MG/4ML VIAL IVP SCH (17:41)
[2022-02-28] MEDS ORDERED: NALOXONE HCL 0.4MG/ML VIAL IV PRN (18:00)
[2022-02-28] MEDS: GABAPENTIN 300MG CAPSULE PO SCH (21:05)
[2022-02-28] MEDS: ATORVASTATIN CALCIUM 40MG TABLET PO SCH (21:05)
[2022-02-28] MEDS: HYDROCODONE/ACETAMINOPHEN 5/325MG TABLET PO PRN (21:06)
[2022-03-01 03:59] VITALS: BP 157/55
[2022-03-01] MEDS: PIPERACILLIN/TAZOBACTAM 3.375G in DEXT 5% WATER 50ML IV SCH ×3 (05:12→21:18)
[2022-03-01] MEDS: GABAPENTIN 300MG CAPSULE PO SCH ×3 (05:12→21:18)
[2022-03-01] MEDS: INSULIN LISPRO 100 UNITS/ML SUBCUT SCH ×4 (06:18→21:19)
[2022-03-01] MEDS: BLOOD SUGAR DIAGNOSTIC STRIP TEST SCH ×4 (06:18→20:22)
[2022-03-01 08:00] VITALS: BP 146/48
[2022-03-01] MEDS: LOSARTAN POTASSIUM 100 MG TABLET PO SCH (08:28)
[2022-03-01] MEDS: HYDRALAZINE HCL 100MG TABLET PO SCH ×3 (08:28→16:46)
[2022-03-01] MEDS: ASPIRIN 81MG EC TABLET PO SCH (08:28)
[2022-03-01] MEDS: FUROSEMIDE 40MG/4ML VIAL IVP SCH ×2 (08:28→16:46)
[2022-03-01 11:55] VITALS: BP 120/44
[2022-03-01] MEDS: ENOXAPARIN 40MG/0.4ML SYR SUBCUT SCH (15:33)
[2022-03-01 16:00] VITALS: BP 119/46
[2022-03-01 20:00] VITALS: BP 131/43
[2022-03-01] MEDS: ATORVASTATIN CALCIUM 40MG TABLET PO SCH (21:18)
[2022-03-01] MEDS: HYDROCODONE/ACETAMINOPHEN 5/325MG TABLET PO PRN (23:48)
[2022-03-02] VITALS: BP 134/46
[2022-03-02 04:00] VITALS: BP 132/62
[2022-03-02] MEDS: PIPERACILLIN/TAZOBACTAM 3.375G in DEXT 5% WATER 50ML IV SCH (05:19)
[2022-03-02] MEDS: GABAPENTIN 300MG CAPSULE PO SCH (05:19)
[2022-03-02] MEDS: INSULIN LISPRO 100 UNITS/ML SUBCUT SCH ×2 (05:56→12:25)
[2022-03-02] MEDS ORDERED: VANCOMYCIN 1,000 MG in DEXT 5% WATER 250 ML IV NR (06:00)
[2022-03-02] MEDS: BLOOD SUGAR DIAGNOSTIC STRIP TEST SCH ×2 (06:20→11:25)
[2022-03-02] MEDS ORDERED: FURO80TA87 MT (07:44)
[2022-03-02 08:00] VITALS: BP 158/48
[2022-03-02] MEDS: HYDRALAZINE HCL 100MG TABLET PO SCH ×2 (08:25→12:24)
[2022-03-02] MEDS: LOSARTAN POTASSIUM 100 MG TABLET PO SCH (08:25)
[2022-03-02] MEDS: FUROSEMIDE 40MG/4ML VIAL IVP SCH (08:25)
[2022-03-02] MEDS: ASPIRIN 81MG EC TABLET PO SCH (08:25)
[2022-03-02] MEDS: HYDROCODONE/ACETAMINOPHEN 5/325MG TABLET PO PRN (11:25)
[2022-03-02 12:00] VITALS: BP 132/81
[2022-03-02 13:06] LABS: CLARITY URINE CLOUDY (CLEAR); COLOR URINE YELLOW (YELLOW); KETONES URINE NEGATIVE (NEGATIVE); LEUKOCYTE ESTERASE URINE NEGATIVE (NEGATIVE); NITRITE URINE NEGATIVE (NEGATIVE); OCCULT BLOOD URINE NEGATIVE (NEGATIVE); PH URINE 5.5 (4.5-8.0); PROTEIN URINE 2+ (NEGATIVE); UROBILINOGEN URINE 0.2 E.U./dL (0.2-1.0)
[2022-03-02 13:13] VITALS: BP 132/81
[2022-03-02 14:34] LABS: BASOPHILS % 0.6 % (0.0-2.0); EOSINOPHILS % 2.2 % (0.0-5.0); HEMATOCRIT. 25.1 % (36.0-48.0); HEMOGLOBIN. 8.5 g/dL (12.0-16.0); LYMPHOCYTES % 12.9 % (20.0-50.0); MEAN CORPUSCULAR HEMOGLOBIN 29.5 pg (28.0-32.0); MEAN CORPUSCULAR VOLUME 86.8 fL (81.0-99.0); MEAN PLATELET VOLUME 6.6 fl (7.4-10.4); MONOCYTES % 6.2 % (2.0-8.0); NEUTROPHILS % 78.1 % (40.0-76.0); PLATELET 346 x1000/uL (130-400); RED BLOOD CELL COUNT 2.89 mill/uL (4.2-5.4); RED CELL DISTRIBUTION WIDTH 15.8 % (11.6-14.6)
[2022-03-02 14:42] LABS: CHLORIDE 102 mEq/L (98-107)
[2022-03-02 14:51] LABS: PHOSPHORUS 4.4 mg/dL (2.5-4.9)
== END 2022-03-02 13:30 | disposition home or self-care (01) | DRG 291 ==
LOC: ER 06:55 → EDBEDREQ 12:00 → EDBEDREQTM 12:00 → EDBEDREQSVC 12:00 → ENRESERV 13:54 → 8WST 18:24
PROVIDERS: ADMIT Internal Medicine Pulmonary Disease; ATTEND Internal Medicine Pulmonary Disease
DX: I13.0 Hypertensive heart and chronic kidney disease with heart failure and stage 1 through stage 4 chronic kidney disease, or unspecified chronic kidney disease (principal); I50.33 Acute on chronic diastolic (congestive) heart failure; J18.9 Pneumonia, unspecified organism; N17.9 Acute kidney failure, unspecified; Z20.822 Contact with and (suspected) exposure to COVID-19; E66.9 Obesity, unspecified; E11.22 Type 2 diabetes mellitus with diabetic chronic kidney disease; N18.30 Chronic kidney disease, stage 3 unspecified; I48.91 Unspecified atrial fibrillation; J44.9 Chronic obstructive pulmonary disease, unspecified; Z87.891 Personal history of nicotine dependence; Z68.33 Body mass index [BMI] 33.0-33.9, adult; Z82.49 Family history of ischemic heart disease and other diseases of the circulatory system; Z79.899 Other long term (current) drug therapy
CPT/HCPCS: 36415; 36600; 71045; 78582; 80048; 80053; 80202; 81003; 82375; 82570; 82805; 82962; 83036; 83735; 83880; 84100; 84156; 84484; 85025; 85379; 87426; 93005; 99285; A9558; C9803; J0456; J1650; J1815; J1940; J2543; J3370; J7060

== ENCOUNTER 2022-05-12 19:18 | Inpatient (IN) | payer MEDICARE, MEDICAID ==
[~2022-05-12] VITALS: Ht 152.4 cm; Wt 100.7 kg
[~2022-05-12 19:18] MED LIST changes: +AMLO10TA80 PO; +CHOL400D7 PO; +GABA-290 PO
[2022-05-12 21:21] LABS: CHLORIDE 106 mEq/L (98-107)
[2022-05-12 21:25] LABS: BASOPHILS % 0.3 % (0.0-2.0); EOSINOPHILS % 0.6 % (0.0-5.0); HEMATOCRIT. 30.7 % (36.0-48.0); HEMOGLOBIN. 9.4 g/dL (12.0-16.0); MEAN CORPUSCULAR HEMOGLOBIN 29.2 pg (28.0-32.0); MEAN CORPUSCULAR VOLUME 94.7 fL (81.0-99.0); MEAN PLATELET VOLUME 7.1 fl (7.4-10.4); MONOCYTES % 3.4 % (2.0-8.0); NEUTROPHILS % 85.7 % (40.0-76.0); PLATELET 308 x1000/uL (130-400); RED BLOOD CELL COUNT 3.24 mill/uL (4.2-5.4); RED CELL DISTRIBUTION WIDTH 16.8 % (11.6-14.6)
[2022-05-12 21:32] LABS: ETHANOL BLOOD < 10 mg/dL
[2022-05-12 21:43] LABS: CLARITY URINE CLOUDY (CLEAR); COLOR URINE YELLOW (YELLOW); KETONES URINE NEGATIVE (NEGATIVE); LEUKOCYTE ESTERASE URINE TRACE (NEGATIVE); NITRITE URINE NEGATIVE (NEGATIVE); OCCULT BLOOD URINE NEGATIVE (NEGATIVE); PROTEIN URINE 4+ (NEGATIVE); SPECIFIC GRAVITY URINE 1.014 (1.005-1.030); UROBILINOGEN URINE 0.2 E.U./dL (0.2-1.0)
[2022-05-12 21:55] LABS: *AMPHETAMINES SCREEN URINE NEGATIVE (NEGATIVE); *BARBITURATES SCREEN URINE NEGATIVE (NEGATIVE); *BENZODIAZEPINES SCREEN URINE NEGATIVE (NEGATIVE); *COCAINE SCREEN URINE NEGATIVE (NEGATIVE); CANNABINOID URINE SCREEN NEGATIVE (NEGATIVE); METHADONE URINE SCREEN NEGATIVE (NEGATIVE); OPIATES URINE SCREEN NEGATIVE (NEGATIVE); PHENCYCLIDINE URINE SCREEN NEGATIVE (NEGATIVE)
[2022-05-12] MEDS ORDERED: NITROGLYCERIN OINT 1GM/INCH UDPKT TD NR (22:00)
[2022-05-12] MEDS ORDERED: FUROSEMIDE 40MG/4ML VIAL IVP NR (22:00)
[2022-05-13] MEDS ORDERED: ACETAMINOPHEN 325MG TABLET PO PRN (13:30)
[2022-05-13] MEDS ORDERED: IPRATROPIUM/ALBUTEROL 0.5-3(2.5)MG/3ML NEB HHN PRN (13:30)
[2022-05-13] MEDS ORDERED: ONDANSETRON HCL 4MG/2ML INJ IV PRN (13:30)
[2022-05-13] MEDS ORDERED: DEXTROSE 50% WATER 50ML SYRINGE IV PRN (13:30)
[2022-05-13] MEDS ORDERED: IPRATROPIUM BROMIDE (0.02%) 0.5MG/2.5ML NEB HHN PRN (14:00)
[2022-05-13] MEDS ORDERED: ALBUTEROL (0.083%) 2.5MG/3ML NEB HHN PRN (14:00)
[2022-05-13] MEDS ORDERED: NALOXONE HCL 0.4MG/ML VIAL IV PRN (14:00)
[2022-05-13] MEDS: METHYLPREDNISOLONE SOD SUCC 40 MG/ML VIAL IV SCH ×2 (14:08→20:12)
[2022-05-13] MEDS: HYDROCODONE/ACETAMINOPHEN 5/325MG TABLET PO PRN ×2 (14:13→20:13)
[2022-05-13 15:10] VITALS: BP 120/70
[2022-05-13 16:00] VITALS: BP 117/72
[2022-05-13] MEDS: FUROSEMIDE 40MG/4ML VIAL IVP SCH (17:50)
[2022-05-13] MEDS: INSULIN LISPRO 100 UNITS/ML SUBCUT SCH ×2 (17:53→20:35)
[2022-05-13] MEDS: BLOOD SUGAR DIAGNOSTIC STRIP TEST SCH ×2 (17:53→19:48)
[2022-05-13] MEDS ORDERED: IPRATROPIUM/ALBUTEROL 0.5-3(2.5)MG/3ML NEB HHN SCH (18:00)
[2022-05-13 20:00] VITALS: BP 127/77
[2022-05-13] MEDS: FAMOTIDINE 20MG TABLET PO SCH (20:12)
[2022-05-13] MEDS: ALBUTEROL (0.083%) 2.5MG/3ML NEB HHN SCH (20:56)
[2022-05-13] MEDS: IPRATROPIUM BROMIDE (0.02%) 0.5MG/2.5ML NEB HHN SCH (20:56)
[2022-05-13] MEDS ORDERED: SENNOSIDES/DOCUSATE SOD 8.6/50MG TABLET PO PRN (21:45)
[2022-05-13] MEDS ORDERED: TRAMADOL 50MG TABLET PO PRN (21:45)
[2022-05-13] MEDS ORDERED: MECLIZINE 25MG TABLET PO PRN (21:45)
[2022-05-14] VITALS: BP 159/68
[2022-05-14] MEDS: HYDROCODONE/ACETAMINOPHEN 5/325MG TABLET PO PRN ×3 (00:54→13:24)
[2022-05-14] MEDS: ALBUTEROL (0.083%) 2.5MG/3ML NEB HHN SCH ×4 (01:25→22:36)
[2022-05-14] MEDS: IPRATROPIUM BROMIDE (0.02%) 0.5MG/2.5ML NEB HHN SCH ×4 (01:25→22:36)
[2022-05-14 04:00] VITALS: BP 118/70
[2022-05-14] MEDS: METHYLPREDNISOLONE SOD SUCC 40 MG/ML VIAL IV SCH ×3 (05:02→21:03)
[2022-05-14 05:59] LABS: MEAN CORPUSCULAR HEMOGLOBIN 30.2 pg (28.0-32.0); MEAN CORPUSCULAR VOLUME 87.3 fL (81.0-99.0); MEAN PLATELET VOLUME 7.3 fl (7.4-10.4); PLATELET 319 x1000/uL (130-400); RED BLOOD CELL COUNT 2.98 mill/uL (4.2-5.4); RED CELL DISTRIBUTION WIDTH 15.8 % (11.6-14.6)
[2022-05-14] MEDS: INSULIN LISPRO 100 UNITS/ML SUBCUT SCH ×4 (06:03→21:16)
[2022-05-14] MEDS: BLOOD SUGAR DIAGNOSTIC STRIP TEST SCH ×4 (06:03→21:02)
[2022-05-14 06:33] LABS: HEPATITIS B SURFACE ANTIGEN NEGATIVE
[2022-05-14 08:00] VITALS: BP 119/54
[2022-05-14] MEDS: HYDRALAZINE HCL 100MG TABLET PO SCH ×3 (08:24→16:26)
[2022-05-14] MEDS: GABAPENTIN 300MG CAPSULE PO SCH ×3 (08:25→16:26)
[2022-05-14] MEDS: DILTIAZEM HCL 30MG TABLET PO SCH ×4 (08:25→20:59)
[2022-05-14] MEDS: HYDROCODONE/ACETAMINOPHEN 10/325MG TABLET PO PRN ×2 (08:25→21:20)
[2022-05-14] MEDS: FUROSEMIDE 40MG/4ML VIAL IVP SCH ×2 (08:25→16:25)
[2022-05-14] MEDS: AMLODIPINE 10MG TABLET PO SCH (08:26)
[2022-05-14] MEDS: ASPIRIN 81MG EC TABLET PO SCH (08:26)
[2022-05-14] MEDS: LOSARTAN POTASSIUM 100 MG TABLET PO SCH (08:26)
[2022-05-14] MEDS: INSULIN GLARGINE 100 UNITS/ML SUBCUT SCH ×2 (08:29→16:29)
[2022-05-14] MEDS: LINAGLIPTIN 5MG TABLET PO SCH (08:38)
[2022-05-14] MEDS: CHOLECALCIFEROL (VIT D3) 400 UNIT TABLET PO SCH (08:38)
[2022-05-14] MEDS ORDERED: MEDICATION NOT ON FORMULARY EA (Furosemide (Lasix) 1 TAB) MT SCH (09:00)
[2022-05-14 12:00] VITALS: BP 154/56
[2022-05-14 14:32] LABS: PLATELET ESTIMATE NORMAL
[2022-05-14 16:00] VITALS: BP 158/52
[2022-05-14] MEDS ORDERED: GUAIFENESIN-DM 200MG-20MG/10ML UDC PO PRN (18:30)
[2022-05-14 20:00] VITALS: BP 129/58
[2022-05-14] MEDS ORDERED: BENZONATATE 100MG CAPSULE PO PRN (20:30)
[2022-05-14] MEDS: FAMOTIDINE 20MG TABLET PO SCH (20:59)
[2022-05-14] MEDS ORDERED: ATORVASTATIN CALCIUM 40MG TABLET PO SCH (21:00)
[2022-05-14] MEDS ORDERED: INSULIN LISPRO 100 UNITS/ML SUBCUT SCH (21:00)
[2022-05-14] MEDS: GUAIFENESIN-DM 200MG-20MG/10ML UDC PO PRN (21:00)
[2022-05-15] VITALS: BP 139/57
[2022-05-15] MEDS: ALBUTEROL (0.083%) 2.5MG/3ML NEB HHN SCH ×3 (02:49→13:51)
[2022-05-15] MEDS: IPRATROPIUM BROMIDE (0.02%) 0.5MG/2.5ML NEB HHN SCH ×3 (02:49→13:51)
[2022-05-15 03:45] VITALS: BP 137/44
[2022-05-15] MEDS: METHYLPREDNISOLONE SOD SUCC 40 MG/ML VIAL IV SCH ×2 (05:58→13:16)
[2022-05-15] MEDS: INSULIN LISPRO 100 UNITS/ML SUBCUT SCH ×3 (05:59→18:14)
[2022-05-15] MEDS: BLOOD SUGAR DIAGNOSTIC STRIP TEST SCH ×3 (06:04→16:55)
[2022-05-15 08:00] VITALS: BP 141/50
[2022-05-15] MEDS: INSULIN GLARGINE 100 UNITS/ML SUBCUT SCH ×2 (09:00→16:55)
[2022-05-15] MEDS: ASPIRIN 81MG EC TABLET PO SCH (09:23)
[2022-05-15] MEDS: FUROSEMIDE 40MG/4ML VIAL IVP SCH ×2 (09:26→16:21)
[2022-05-15] MEDS: LINAGLIPTIN 5MG TABLET PO SCH (09:26)
[2022-05-15] MEDS: CHOLECALCIFEROL (VIT D3) 400 UNIT TABLET PO SCH (09:26)
[2022-05-15] MEDS: HYDRALAZINE HCL 100MG TABLET PO SCH ×3 (09:26→16:24)
[2022-05-15] MEDS: LOSARTAN POTASSIUM 100 MG TABLET PO SCH (09:27)
[2022-05-15] MEDS: GABAPENTIN 300MG CAPSULE PO SCH ×3 (09:27→16:22)
[2022-05-15] MEDS: AMLODIPINE 10MG TABLET PO SCH (09:27)
[2022-05-15] MEDS: DILTIAZEM HCL 30MG TABLET PO SCH ×3 (09:42→16:22)
[2022-05-15] MEDS: GUAIFENESIN-DM 200MG-20MG/10ML UDC PO PRN ×2 (09:55→16:21)
[2022-05-15] MEDS ORDERED: FLUT1DIS3 INH (09:55)
[2022-05-15] MEDS ORDERED: P20 MT (09:55)
[2022-05-15 12:00] VITALS: BP 159/53
[2022-05-15] MEDS: HYDROCODONE/ACETAMINOPHEN 10/325MG TABLET PO PRN (13:30)
[2022-05-15 16:00] VITALS: BP 110/50
[2022-05-15 16:51] VITALS: BP 110/50
== END 2022-05-15 17:40 | disposition home or self-care (01) | DRG 291 ==
LOC: ER 19:18 → EDBEDREQ 05-13 01:52 → EDBEDREQTM 05-13 01:52 → 8WST 05-13 10:25
PROVIDERS: ADMIT Internal Medicine Pulmonary Disease; ATTEND Internal Medicine Pulmonary Disease
DX: I13.0 Hypertensive heart and chronic kidney disease with heart failure and stage 1 through stage 4 chronic kidney disease, or unspecified chronic kidney disease (principal); I50.33 Acute on chronic diastolic (congestive) heart failure; J96.20 Acute and chronic respiratory failure, unspecified whether with hypoxia or hypercapnia; J44.1 Chronic obstructive pulmonary disease with (acute) exacerbation; N17.9 Acute kidney failure, unspecified; E44.0 Moderate protein-calorie malnutrition; Z68.41 Body mass index [BMI] 40.0-44.9, adult; N18.9 Chronic kidney disease, unspecified; Z20.822 Contact with and (suspected) exposure to COVID-19; E11.22 Type 2 diabetes mellitus with diabetic chronic kidney disease; E11.65 Type 2 diabetes mellitus with hyperglycemia; D63.1 Anemia in chronic kidney disease; E66.9 Obesity, unspecified; Z79.4 Long term (current) use of insulin; Z99.81 Dependence on supplemental oxygen; Z82.49 Family history of ischemic heart disease and other diseases of the circulatory system
CPT/HCPCS: 36415; 71045; 80048; 80053; 80305; 80320; 81003; 83880; 84484; 85025; 86803; 87340; 87426; 93005; 94640; 99285; J1815; J1940; J2920; J8597; G0480

== ENCOUNTER 2023-03-14 19:18 | Emergency (ER) | payer MEDICARE, MEDICAID ==
[~2023-03-14] VITALS: Ht 170.2 cm; Wt 118.0 kg
[~2023-03-14 19:18] MED LIST changes: +CARV6.2548 MT; +DILT30TA37 MT; -DILT30TA38 MT; +FLUT1DIS3 INH; +GABA-534 MT; +HYDR-4001 MT; -HYDR-4009 MT; +HYDR-4135 MT; -HYDR100T26 MT; -LOSA100T32 MT; +LOSA100T33 MT; -MECL-159 MT; +MECL-299 MT; +OMEP40CA20 PO; +P20 MT; +ROSU20TA2 MT; +SITA50TA3 MT
[2023-03-14 19:31] VITALS: O2SAT 98
[2023-03-14] MEDS ORDERED: ACETAMINOPHEN 325MG TABLET PO STA (20:01)
[2023-03-14] MEDS ORDERED: FUROSEMIDE 40MG/4ML VIAL IV ONE (20:15)
[2023-03-14 21:01] LABS: HEMATOCRIT. 27.3 % (36.0-48.0); HEMOGLOBIN. 8.6 g/dL (12.0-16.0); MEAN CORPUSCULAR HEMOGLOBIN 29.9 pg (28.0-32.0); MEAN CORPUSCULAR HGB CONC 31.5 g/dL (31.0-37.0); MEAN CORPUSCULAR VOLUME 94.8 fL (81.0-99.0); MEAN PLATELET VOLUME 7.2 fl (7.4-10.4); PLATELET 262 x1000/uL (130-400); RED BLOOD CELL COUNT 2.88 mill/uL (4.2-5.4); RED CELL DISTRIBUTION WIDTH 18.2 % (11.6-14.6); WHITE BLOOD COUNT 9.9 x1000/uL (4.5-11.0)
[2023-03-14 21:03] LABS: DIFFERENTIAL COMMENT 1
[2023-03-14 21:27] LABS: ANISOCYTOSIS 1+; PLATELET ESTIMATE NORMAL
[2023-03-14 21:37] LABS: ALANINE AMINOTRANSFERASE 18 IU/L (10-49); ALBUMIN 3.5 g/dL (3.2-4.8); ASPARTATE AMINOTRANSFERASE 26 IU/L (<34); BILIRUBIN TOTAL 0.4 mg/dL (0.1-1.0); CALCIUM 8.4 mg/dL (8.7-10.4); CARBON DIOXIDE 24 mEq/L (21-32); CHLORIDE 108 mEq/L (98-107); CREATININE 2.1 mg/dL (0.6-1.0); GLUCOSE 233 mg/dL (70-105); POTASSIUM 4.7 mEq/L (3.5-5.1); PROTEIN TOTAL 7.1 g/dL (6.0-8.3); SODIUM 140 mEq/L (136-145); TROPONIN I HIGH SENSITIVITY 19 ng/L (3.0-34); UREA NITROGEN BLOOD 29 mg/dL (9-23)
[2023-03-15 03:50] VITALS: BP 125/65; PULSE 98; RESP 16; TEMP 98.4
== END 2023-03-15 03:40 | disposition short-term general hospital (02) ==
LOC: ER 19:18 → CANBEDREQ 03-15 14:15
DX: I11.0 Hypertensive heart disease with heart failure (principal); I50.9 Heart failure, unspecified; R60.1 Generalized edema; J44.9 Chronic obstructive pulmonary disease, unspecified; E11.9 Type 2 diabetes mellitus without complications; Z79.899 Other long term (current) drug therapy
CPT/HCPCS: 99285; 96374; 71045; 80053; 83880; 85025; 84484; 36415; 93005; J1940

== ENCOUNTER 2023-06-14 18:51 | Emergency (ER) | payer MEDICARE ==
[~2023-06-14] VITALS: Ht 162.6 cm; Wt 91.0 kg
[~2023-06-14 18:51] MED LIST changes: -FURO80TA87 MT; +FURO80TA87 PO; -GABA-534 MT; -HYDR-4001 MT; -HYDR-4135 MT; -HYDR100T26 PO; +HYDR50TA40 MT; -OMEP40CA20 PO; -P20 MT; -SENN1TAB35 PO; -SITA25TA3 MT; -SITA50TA3 MT; -TRAM50TA3 MT
[2023-06-14] MEDS: ONDANSETRON HCL 4MG/2ML INJ IV STA ×2 (20:51→21:48)
[2023-06-14] MEDS: MORPHINE SULFATE 4 MG/ML CPJ (NOT FOR IM USE) IV STA ×2 (20:51→21:48)
[2023-06-14] MEDS: FUROSEMIDE 40MG/4ML VIAL IVP ONE (20:51)
[2023-06-14 21:46] LABS: BASOPHILS % 0.5 % (0.0-2.0); EOSINOPHILS % 1.7 % (0.0-5.0); HEMATOCRIT. 25.6 % (36.0-48.0); HEMOGLOBIN. 8.3 g/dL (12.0-16.0); MEAN CORPUSCULAR HEMOGLOBIN 29.8 pg (28.0-32.0); MEAN CORPUSCULAR HGB CONC 32.3 g/dL (31.0-37.0); MEAN CORPUSCULAR VOLUME 92.2 fL (81.0-99.0); MEAN PLATELET VOLUME 7.1 fl (7.4-10.4); MONOCYTES % 6.5 % (2.0-8.0); NEUTROPHILS % 83.3 % (40.0-76.0); PLATELET 232 x1000/uL (130-400); RED BLOOD CELL COUNT 2.77 mill/uL (4.2-5.4); RED CELL DISTRIBUTION WIDTH 16.8 % (11.6-14.6); WHITE BLOOD COUNT 9.7 x1000/uL (4.5-11.0)
[2023-06-14 21:55] LABS: ALANINE AMINOTRANSFERASE 9 IU/L (10-49); ALBUMIN 3.9 g/dL (3.2-4.8); ASPARTATE AMINOTRANSFERASE 15 IU/L (<34); BILIRUBIN TOTAL 0.4 mg/dL (0.1-1.0); CALCIUM 8.8 mg/dL (8.7-10.4); CARBON DIOXIDE 27 mEq/L (21-32); CHLORIDE 102 mEq/L (98-107); GLUCOSE 272 mg/dL (70-105); POTASSIUM 4.2 mEq/L (3.5-5.1); PROTEIN TOTAL 7.2 g/dL (6.0-8.3); SODIUM 135 mEq/L (136-145); TROPONIN I HIGH SENSITIVITY 34 ng/L (3.0-34); UREA NITROGEN BLOOD 54 mg/dL (9-23)
[2023-06-14] MEDS: ETOMIDATE 2MG/ML 10ML VIAL IV ONE (22:00)
[2023-06-14 22:07] LABS: CREATININE 2.8 mg/dL (0.6-1.0)
[2023-06-14 22:45] VITALS: O2SAT 96
[2023-06-15 04:00] VITALS: BP 157/58; PULSE 66; RESP 10; TEMP 98.1
== END 2023-06-15 04:50 | disposition short-term general hospital (02) ==
LOC: ER 19:06
DX: S82.852A Displaced trimalleolar fracture of left lower leg, initial encounter for closed fracture (principal); M25.551 Pain in right hip; N18.9 Chronic kidney disease, unspecified; I13.0 Hypertensive heart and chronic kidney disease with heart failure and stage 1 through stage 4 chronic kidney disease, or unspecified chronic kidney disease; I50.9 Heart failure, unspecified; E11.9 Type 2 diabetes mellitus without complications; J44.9 Chronic obstructive pulmonary disease, unspecified; W06.XXXA Fall from bed, initial encounter; Y93.89 Activity, other specified; Y92.89 Other specified places as the place of occurrence of the external cause; Y99.8 Other external cause status
CPT/HCPCS: 99285; 27840; 96374; 72192; 71045; 80053; 83880; 85025; 84484; 36415; 73610; 99152; 93005; 82962; J3490; J1940; J2405; J2270

== ENCOUNTER 2024-07-09 20:08 | Emergency (ER) | payer MEDICARE, MEDICAID ==
[~2024-07-09] VITALS: Ht 160 cm; Wt 99.0 kg
[2024-07-09 20:10] VITALS: O2SAT 98
[2024-07-09] MEDS: SODIUM CHLORIDE 0.9% 1,000 ML IV ONE (20:55)
[2024-07-09 21:06] LABS: BASOPHILS % 1.3 % (0.0-2.0); EOSINOPHILS % 5.1 % (0.0-5.0); HEMATOCRIT. 27.2 % (36.0-48.0); MEAN CORPUSCULAR HEMOGLOBIN 32.9 pg (28.0-32.0); MEAN CORPUSCULAR HGB CONC 33.2 g/dL (31.0-37.0); MEAN CORPUSCULAR VOLUME 99.2 fL (81.0-99.0); MEAN PLATELET VOLUME 7.3 fl (7.4-10.4); NEUTROPHILS % 69.6 % (40.0-76.0); PLATELET 225 x1000/uL (130-400); RED BLOOD CELL COUNT 2.74 mill/uL (4.2-5.4); RED CELL DISTRIBUTION WIDTH 16.6 % (11.6-14.6); WHITE BLOOD COUNT 8.5 x1000/uL (4.5-11.0)
[2024-07-09 21:11] LABS: POTASSIUM 4.6 mEq/L (3.5-5.1)
[2024-07-09 21:12] LABS: CALCIUM 8.4 mg/dL (8.7-10.4)
[2024-07-09 21:18] LABS: CREATININE 3.9 mg/dL (0.6-1.0)
[2024-07-09 21:26] LABS: BETA HYDROXYBUTYRATE 0.1 mMol/L (0.0-0.3)
[2024-07-10] MEDS ORDERED: DOCUSATE SODIUM 100MG CAPSULE PO PRN (02:00)
[2024-07-10] MEDS ORDERED: CLONIDINE 0.1MG TABLET PO PRN (02:00)
[2024-07-10] MEDS ORDERED: MECLIZINE 25MG TABLET PO PRN (02:00)
[2024-07-10] MEDS ORDERED: ACETAMINOPHEN 325MG TABLET PO PRN (02:00)
[2024-07-10 04:38] VITALS: BP 128/50; PULSE 72; RESP 18; TEMP 36.8; O2SAT 100
[2024-07-10] MEDS ORDERED: GABAPENTIN 300MG CAPSULE PO SCH (06:00)
[2024-07-10] MEDS ORDERED: FUROSEMIDE 100MG/10ML VIAL IVP SCH (09:00)
[2024-07-10] MEDS ORDERED: CARVEDILOL 6.25 MG TABLET PO SCH (09:00)
[2024-07-10] MEDS ORDERED: ASPIRIN 81MG EC TABLET PO SCH (09:00)
[2024-07-10] MEDS ORDERED: LOSARTAN 100 MG TABLET PO SCH (09:00)
[2024-07-10] MEDS ORDERED: ENOXAPARIN 30MG/0.3ML SYR SUBCUT SCH (09:00)
[2024-07-10] MEDS ORDERED: HYDRALAZINE HCL 50MG TABLET PO SCH (09:00)
[2024-07-10] MEDS ORDERED: AMLODIPINE 10MG TABLET PO SCH (09:00)
[2024-07-10] MEDS ORDERED: DILTIAZEM HCL 30MG TABLET PO SCH (09:00)
[2024-07-10] MEDS ORDERED: INSULIN GLARGINE 100 UNITS/ML SUBCUT SCH (10:00)
[2024-07-10] MEDS ORDERED: ATORVASTATIN CALCIUM 40MG TABLET PO SCH (21:00)
[2024-07-10] MEDS ORDERED: FAMOTIDINE 20MG TABLET PO SCH (21:00)
== END 2024-07-10 05:14 | disposition short-term general hospital (02) ==
LOC: ER 20:08
DX: I13.2 Hypertensive heart and chronic kidney disease with heart failure and with stage 5 chronic kidney disease, or end stage renal disease (principal); E11.65 Type 2 diabetes mellitus with hyperglycemia; E11.22 Type 2 diabetes mellitus with diabetic chronic kidney disease; I50.9 Heart failure, unspecified; N18.6 End stage renal disease; Z79.4 Long term (current) use of insulin; Z79.51 Long term (current) use of inhaled steroids; Z79.82 Long term (current) use of aspirin; Z79.899 Other long term (current) drug therapy; Z89.512 Acquired absence of left leg below knee; Z99.2 Dependence on renal dialysis
CPT/HCPCS: 99285; 96360; 80048; 82010; 82962 ×2; 85025; 85610; 36415; 71045; 93005; J7030; J1940

== ENCOUNTER 2024-09-15 10:42 | Emergency (ER) | payer MEDICARE, MEDICAID ==
[~2024-09-15] VITALS: Ht 170.2 cm; Wt 99.0 kg
[~2024-09-15 10:42] MED LIST changes: -AMLO10TA80 PO; +APIX5TAB PO; -CARV6.2548 MT; -DILT30TA37 MT; -FURO80TA87 PO; -GABA-290 PO; +HYDR50TA39 PO; -HYDR50TA40 MT; +HYDR50TA40 PO; -LEVVL SQ; -LIP40 PO; -LOSA100T33 MT; -MECL-299 MT; +NIFE-32 PO
[2024-09-15 10:48] VITALS: TEMP 37; O2SAT 99
[2024-09-15 11:41] LABS: POTASSIUM 3.8 mEq/L (3.5-5.1)
[2024-09-15 11:42] LABS: CALCIUM 9.3 mg/dL (8.7-10.4)
[2024-09-15 14:27] VITALS: BP 147/78; PULSE 63; RESP 14; O2SAT 96
== END 2024-09-15 15:00 | disposition home or self-care (01) ==
LOC: ER 10:42
DX: I13.2 Hypertensive heart and chronic kidney disease with heart failure and with stage 5 chronic kidney disease, or end stage renal disease (principal); N18.6 End stage renal disease; I50.9 Heart failure, unspecified; E11.22 Type 2 diabetes mellitus with diabetic chronic kidney disease; E78.00 Pure hypercholesterolemia, unspecified; J44.9 Chronic obstructive pulmonary disease, unspecified; Z79.01 Long term (current) use of anticoagulants; Z79.51 Long term (current) use of inhaled steroids; Z79.82 Long term (current) use of aspirin; Z79.899 Other long term (current) drug therapy; Z88.1 Allergy status to other antibiotic agents; Z88.2 Allergy status to sulfonamides; Z88.5 Allergy status to narcotic agent; Z99.2 Dependence on renal dialysis
CPT/HCPCS: 36415; 80048; 93005; 99284

== ENCOUNTER 2024-09-19 19:47 | Emergency (ER) | payer MEDICARE, MEDICAID ==
[~2024-09-19] VITALS: Ht 167.6 cm; Wt 69.0 kg
[2024-09-19 19:53] VITALS: TEMP 36.9; O2SAT 99
[2024-09-19] MEDS ORDERED: HYDROCODONE/ACETAMINOPHEN 5/325MG TABLET PO ONE (20:15)
[2024-09-19 21:41] LABS: BASOPHILS % 0.5 % (0.0-2.0); EOSINOPHILS % 1.7 % (0.0-5.0); HEMATOCRIT. 45.2 % (36.0-48.0); HEMOGLOBIN. 14.8 g/dL (12.0-16.0); LYMPHOCYTES % 14.6 % (20.0-50.0); MEAN CORPUSCULAR HEMOGLOBIN 29.2 pg (28.0-32.0); MEAN CORPUSCULAR HGB CONC 32.8 g/dL (31.0-37.0); MEAN CORPUSCULAR VOLUME 89.2 fL (81.0-99.0); MEAN PLATELET VOLUME 6.9 fl (7.4-10.4); MONOCYTES % 6.8 % (2.0-8.0); NEUTROPHILS % 76.4 % (40.0-76.0); PLATELET 159 x1000/uL (130-400); RED BLOOD CELL COUNT 5.07 mill/uL (4.2-5.4); RED CELL DISTRIBUTION WIDTH 16.4 % (11.6-14.6); WHITE BLOOD COUNT 12.3 x1000/uL (4.5-11.0)
[2024-09-19 21:47] LABS: CALCIUM 9.3 mg/dL (8.7-10.4)
[2024-09-19 21:52] LABS: CREATININE 2.8 mg/dL (0.6-1.0)
[2024-09-19 21:58] LABS: PARTIAL THROMBOPLASTIN TIME 26.9 sec (23.4-31.0); PROTHROMBIN TIME 10.8 sec (9.6-11.0)
[2024-09-19] MEDS: HYDROCODONE/ACETAMINOPHEN 5/325MG TABLET PO NR (23:36)
[2024-09-20] MEDS ORDERED: ACET-2708 MT (02:10)
[2024-09-20] MEDS: HYDROCODONE/ACETAMINOPHEN 5/325MG TABLET PO ONE (04:13)
[2024-09-20] MEDS: CLONIDINE 0.1MG TABLET PO ONE (04:14)
[2024-09-20] MEDS: CLONIDINE 0.1MG TABLET PO NR (04:40)
[2024-09-20 04:42] VITALS: BP 152/65; PULSE 69; RESP 16; O2SAT 98
== END 2024-09-20 04:59 | disposition home or self-care (01) ==
LOC: ER 19:47 → EDBEDREQ 09-20 00:09 → EDBEDREQSVC 09-20 01:58 → EDBEDREQ 09-20 01:58 → ER 09-20 04:59
DX: M25.562 Pain in left knee (principal); M25.552 Pain in left hip; R53.1 Weakness; E11.9 Type 2 diabetes mellitus without complications; I11.0 Hypertensive heart disease with heart failure; I50.9 Heart failure, unspecified; I67.82 Cerebral ischemia; J44.9 Chronic obstructive pulmonary disease, unspecified; Z55.6 Problems related to health literacy; Z79.01 Long term (current) use of anticoagulants; Z79.51 Long term (current) use of inhaled steroids; Z79.82 Long term (current) use of aspirin; Z79.899 Other long term (current) drug therapy; Z88.1 Allergy status to other antibiotic agents; Z88.2 Allergy status to sulfonamides; Z88.5 Allergy status to narcotic agent; Z89.512 Acquired absence of left leg below knee; W06.XXXA Fall from bed, initial encounter; Y93.89 Activity, other specified; Y92.89 Other specified places as the place of occurrence of the external cause; Y99.8 Other external cause status
CPT/HCPCS: 36415; 73502; 73562; 73700; 80048; 85025; 86850; 86900; 99284